=== PATIENT | female | born 2000 | race Caucasian/White ===

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

== ENCOUNTER 2021-06-20 17:35 | Emergency (ER) | payer MEDICAID, SELFPAY ==
[2021-06-20 17:38] VITALS: BP 142/111; PULSE 104; RESP 16; TEMP 37; O2SAT 98; BMI 39.4
[2021-06-20 18:40] LABS: Microscopic, Urine URINE MICROSCOPIC (MICROSCOPIC)
[2021-06-20 18:45] LABS: Basophils # 0.1 K/mm3 (0-0.2); Basophils % 0.8 % (0.1-2.0); Eosinophils # 0.1 K/mm3 (0.0-0.4); Eosinophils % 1.3 % (0.1-12.0); Hematocrit 45.4 % (37.0-47.0); Hemoglobin 14.6 g/dL (12.2-16.2); Lymphocytes # 1.9 K/mm3 (0.7-4.5); Lymphocytes % 17.7 % (10-50); Mean Corpuscular HGB Conc 32.2 g/dL (31.8-35.4); Mean Corpuscular Hemoglobin 26.2 pg (27.0-31.2); Mean Corpuscular Volume 81.4 fl (81-99); Mean Platelet Volume 9.7 fl (7.4-10.4); Monocytes # 0.3 K/mm3 (0.1-1.0); Monocytes % 3.1 % (1.7-9.3); Neutrophils # 8.1 K/mm3 (1.8-7.8); Platelet Count 272 K/mm3 (142-424); Red Blood Count 5.57 M/mm3 (4.20-5.40); White Blood Count 10.5 K/mm3 (4.8-10.8)
[2021-06-20 18:49] LABS: Appearance,Urine SL CLOUDY (Clear); Bilirubin,Urine Negative (Negative); Blood, Urine Negative (Negative); Color,Urine DK YELLOW (Yellow); Glucose,Urine (UA) Negative (Negative); Ketones,Urine TRACE (Negative); Leukocyte Esterase,Urine 1+ (Negative); Nitrate,Urine POSITIVE (Negative); Protein,Urine Negative (Negative); Urobilinogen,Urine 0.2 EU/dl (0.2)
[2021-06-20 18:51] LABS: Chloride 106 mmol/L (98-107)
[2021-06-20 18:52] LABS: Potassium 4.1 mmoL/L (3.5-5.1); Sodium 141 mmol/L (136-145)
[2021-06-20 18:54] LABS: Alanine Aminotransferase 24 U/L (12-78); Aspartate Amino Transferase 33 U/L (14-36); Bilirubin,Total 0.5 mg/dl (0.2-1.3); Blood Urea Nitrogen 8 mg/dl (7-17); Creatinine Clearance Estimated 237 mL/min (50-200); Estimated Glomerular Filt Rate 126 ml/min (>60); GFR (African American) 153 ML/MIN (>60)
[2021-06-20 18:55] LABS: Albumin Level 4.8 g/dl (3.5-5.0); Alkaline Phosphatase 141 U/L (38-126); Anion Gap 17.1 mEq/L (5-15); Calcium 9.7 mg/dl (8.4-10.2); Carbon Dioxide 22 mmol/L (22.0-30.0); Globulin 4.8 g/dL (1.3-3.2); Glucose 90 mg/dl (74-100); Lipase 68 U/L (23-300); Total Protein,Serum 9.6 g/dl (6.3-8.2)
[2021-06-20 18:57] LABS: Urine Pregnancy, HCG Qual. Negative (Negative)
[2021-06-20 18:59] LABS: Bacteria,Urine 3+ /lpf; RBC,Urine Occasional #/hpf (0-3)
--- NOTE | 2021-06-20 19:00 | CT_ITS ---
PROCEDURE INFORMATION: Exam: CT Abdomen And Pelvis With Contrast Exam date and time: 06/20/2021 7:00 PM Age: 21 years old Clinical indication: Abdominal pain; Localized; Right lower quadrant (rlq); Additional info: Rlq pain TECHNIQUE: Imaging protocol: Computed tomography of the abdomen and pelvis with contrast. Radiation optimization: All CT scans at this facility use at least one of these dose optimization techniques: automated exposure control; mA and/or kV adjustment per patient size (includes targeted exams where dose is matched to clinical indication); or iterative reconstruction. Contrast material: ISOVUE; Contrast volume: 75 ml; Contrast route: IV; COMPARISON: CR KUB XR KUB 06/09/2018 1:20 PM FINDINGS: Liver: Normal. No mass. Gallbladder and bile ducts: Normal. No calcified stones. No ductal dilation. Pancreas: Normal. No ductal dilation. Spleen: Normal. No splenomegaly. Adrenal glands: Normal. No mass. Kidneys and ureters: Normal. No hydronephrosis. Stomach and bowel: Unremarkable. No obstruction. No mucosal thickening. Appendix: No evidence of appendicitis. Intraperitoneal space: Unremarkable. No free air. No significant fluid collection. Vasculature: Unremarkable. No abdominal aortic aneurysm. Lymph nodes: Unremarkable. No enlarged lymph nodes. Urinary bladder: Unremarkable as visualized. Reproductive: Unremarkable as visualized. Bones/joints: Unremarkable. No acute fracture. Soft tissues: Unremarkable. IMPRESSION: No acute findings.
--- NOTE | 2021-06-20 19:42 | HMH.EDGENADL ---
ED Disposition Condition on Discharge: Fair Time of Disposition: 19:56 - Critical Care Critical Care Time: No <Rhonda Dickens - Last Filed: 06/20/21 20:02> <Jose A Galvan - Last Filed: 06/20/21 20:56> Clinical Impression: Urinary tract infection Qualifiers: Urinary tract infection type: acute cystitis Hematuria presence: without hematuria Qualified Code(s): N30.00 - Acute cystitis without hematuria Disposition: Home, Self-Care Instructions: DI for Urinary Tract Infection (UTI), DI for Acute Abdominal Pain Prescriptions: ondansetron HCL [Ondansetron 4mg tab*] 4 mg PO Q6 PRN #12 tab PRN Reason: Vomiting Transmission Status: Received by [facility] Sulfamethoxazole/Trimethoprim [Sulfamethoxazole-Tmp Ds Tablet*] 1 tab PO BID #14 tab Transmission Status: Received by [facility] Referrals: Alpesh Jc MD [Primary Care Provider] - Attestation: On 06/20/21, the high probability of a clinically significant, sudden or life threatening deterioration of the following system(s) required my full and direct attention, intervention and personal management. The time I documented below is in addition to time spent performing reported procedures but includes the following listed in this critical care notation. Medical Decision Making - Medical Records Medical records reviewed: Yes: I reviewed the patient's medical records. - Alek Inquiry Pt receiving controlled substance: No - Lab Data Result diagrams: 06/20/21 18:30 06/20/21 18:30 <Rhonda Dickens - Last Filed: 06/20/21 20:02> - Lab Data Lab results reviewed: Yes: I reviewed the patient's lab results. Result diagrams: 06/20/21 18:30 06/20/21 18:30 - CT Data CT Scan: Abdomen, Pelvis Time Received: 20:[address] Reviewed: Yes: I have viewed the radiologist's interpretation Preliminary Findings: Normal/NAD <Jose A Galvan - Last Filed: 06/20/21 20:56> Vital Signs: 06/20/21 17:38 Temperature 98.6 F Temperature Source Oral Pulse Rate [Radial] 104 H Respiratory Rate 16 Blood Pressure [Right Arm] 142/111 H Blood Pressure Mean [Right Arm] 121 Blood Pressure Position [Right Arm] Sitting 02 Sat by Pulse Oximetry 98 Oxygen Delivery Method Room Air - Lab Data Lab Results 06/20/21 18:30: Urine Color Dk yellow, Urine Appearance Sl cloudy, Urine pH 6.0, Ur Specific [place] 1.020, Urine Protein Negative, Urine Glucose (UA) Negative, Urine Ketones Trace, Urine Blood Negative, Urine Nitrate Positive, Urine Bilirubin Negative, Urine Urobilinogen 0.2, Ur Leukocyte Esterase 1+ A, Urine RBC Occasional, Urine WBC 5-10, Ur Squamous Epith Cells 3-5, Urine Bacteria 3+ 06/20/21 18:30: WBC 10.5, RBC 5.57 H, Hgb 14.6, Hct 45.4, MCV 81.4, MCH 26.2 L, MCHC 32.2, RDW 14.0, Plt Count 272, MPV 9.7, Neut % (Auto) 77.0, Lymph % (Auto) 17.7, [place] % (Auto) 3.1, Eos % (Auto) 1.3, Baso % (Auto) 0.8, Neut # (Auto) 8.1 H, Lymph # (Auto) 1.9, [place] # (Auto) 0.3, Eos # (Auto) 0.1, Baso # (Auto) 0.1 06/20/21 18:30: Urine HCG, Qual Negative 06/20/21 18:30: Sodium 141, Potassium 4.1, Chloride 106, Carbon Dioxide 22, Anion Gap 17.1 H, BUN 8, Creatinine 0.60, Estimated Creat Clear 237, Estimated GFR 126, Est GFR ( Amer) 153, Glucose 90, Calcium 9.7, Total Bilirubin 0.5, AST 33, ALT 24, Alkaline Phosphatase 141 H, Total Protein 9.6 H, Albumin 4.8, Globulin 4.8 H, Albumin/Globulin Ratio 1.0 L 06/20/21 18:30: Lipase 68 Orders (Tests/Meds): ED MEDICATIONS Generic Name Dose Route Start Last Admin Trade Name Freq PRN Reason Stop Dose Admin Ceftriaxone Sodium 1 gm/ 50 mls @ 100 mls/hr 06/20/21 20:00 06/20/21 19:52 Sodium Chloride IV 07/04/21 19:59 100 mls/hr Q24H OMAR Administration Discontinued Medications Generic Name Dose Route Start Last Admin Trade Name Freq PRN Reason Stop Dose Admin Iopamidol 75 ml 06/20/21 20:04 06/20/21 20:04 Iopamidol-370 (76%);100ml Bottle IV 06/20/21 20:05 75 ml ONCE ONE Administration Sodium Chloride
[2021-06-20 21:00] VITALS: BP 139/89; PULSE 90; RESP 16; TEMP 37; O2SAT 98
== END 2021-06-20 21:02 | disposition home or self-care (01) ==
PROVIDERS: Emergency Provider Emergency Medicine; PCP Family Medicine
DX: N30.00 Acute cystitis without hematuria (principal)
CPT/HCPCS: 74177; 80053; 81001; 81025; 83690; 85025; 87086; 87088; 87186; 96365; 99283; Q9967

== ENCOUNTER 2022-01-05 14:55 | Emergency (ER) | payer MEDICAID, SELFPAY ==
[2022-01-05 14:56] VITALS: BP 124/89; PULSE 92; RESP 16; TEMP 36.8; O2SAT 98; BMI 34.9
[2022-01-05 15:36] LABS: Microscopic, Urine URINE MICROSCOPIC (MICROSCOPIC)
[2022-01-05 15:38] LABS: Basophils # 0.2 K/mm3 (0-0.2); Basophils % 3.2 % (0.1-2.0); Eosinophils # 0.6 K/mm3 (0.0-0.4); Eosinophils % 9.5 % (0.1-12.0); Hematocrit 41.8 % (37.0-47.0); Hemoglobin 13.9 g/dL (12.2-16.2); Lymphocytes # 2.4 K/mm3 (0.7-4.5); Lymphocytes % 39.3 % (10-50); Mean Corpuscular HGB Conc 33.1 g/dL (31.8-35.4); Mean Corpuscular Hemoglobin 26.1 pg (27.0-31.2); Mean Corpuscular Volume 78.9 fl (81-99); Mean Platelet Volume 9.5 fl (7.4-10.4); Monocytes # 0.4 K/mm3 (0.1-1.0); Monocytes % 6.5 % (1.7-9.3); Neutrophils # 2.6 K/mm3 (1.8-7.8); Neutrophils % 41.4 % (37.0-80.0); Platelet Count 208 K/mm3 (142-424); Red Cell Distribution Width 14.8 % (11.5-17.5); White Blood Count 6.2 K/mm3 (4.8-10.8)
[2022-01-05 15:39] LABS: Appearance,Urine CLEAR (Clear); Bilirubin,Urine Negative (Negative); Blood, Urine Negative (Negative); Color,Urine YELLOW (Yellow); Glucose,Urine (UA) Negative (Negative); Ketones,Urine Negative (Negative); Leukocyte Esterase,Urine Negative (Negative); Nitrate,Urine Negative (Negative); Protein,Urine Negative (Negative); Urobilinogen,Urine 0.2 EU/dl (0.2)
[2022-01-05 15:42] LABS: Chloride 106 mmol/L (98-107)
[2022-01-05 15:43] LABS: Sodium 138 mmol/L (136-145)
[2022-01-05 15:45] LABS: Alanine Aminotransferase 49 U/L (12-78); Aspartate Amino Transferase 45 U/L (14-36); Bilirubin,Total 0.5 mg/dl (0.2-1.3); Blood Urea Nitrogen 7 mg/dl (7-17); Creatinine Clearance Estimated 179 mL/min (50-200); Estimated Glomerular Filt Rate 106 ml/min (>60); GFR (African American) 128 ML/MIN (>60); Lipase 85 U/L (23-300)
[2022-01-05 15:46] LABS: Albumin Level 4.2 g/dl (3.5-5.0); Albumin/Globulin Ratio 1.1 (1.1-1.8); Alkaline Phosphatase 145 U/L (38-126); Calcium 8.6 mg/dl (8.4-10.2); Carbon Dioxide 24 mmol/L (22.0-30.0); Globulin 3.7 g/dL (1.3-3.2); Glucose 88 mg/dl (74-100); Total Protein,Serum 7.9 g/dl (6.3-8.2)
[2022-01-05 15:51] LABS: Bacteria,Urine Trace /lpf; Mucus,Urine Trace /lpf; WBC,Urine Occasional #/hpf (0-3)
[2022-01-05 15:58] LABS: HCG Qualitative, Serum Negative (Negative)
--- NOTE | 2022-01-05 16:39 | HMH.EDABDPAI ---
ED Disposition Clinical Impression: Gastroenteritis Disposition: Home, Self-Care Condition on Discharge: Good Instructions: DI for Viral Gastroenteritis -- Adult Prescriptions: Ondansetron [Zofran 4mg ODT] 4 mg PO BIDP PRN #10 tab PRN Reason: Nausea Transmission Status: Pending to [facility] Referrals: Provider,Referral, [Primary Care Provider] - - Critical Care Critical Care Time: No Attestation: On 01/05/22, the high probability of a clinically significant, sudden or life threatening deterioration of the following system(s) required my full and direct attention, intervention and personal management. The time I documented below is in addition to time spent performing reported procedures but includes the following listed in this critical care notation. Medical Decision Making - Medical Records Medical records reviewed: Yes: I reviewed the patient's medical records. - Alek Inquiry Pt receiving controlled substance: No Vital Signs: 01/05/22 14:56 Temperature 98.3 F Temperature Source Oral Pulse Rate [Radial] 92 H Respiratory Rate 16 Blood Pressure [Right Arm] 124/89 Blood Pressure Mean [Right Arm] 100 Blood Pressure Position [Right Arm] Sitting 02 Sat by Pulse Oximetry 98 Oxygen Delivery Method Room Air - Lab Data Lab Results 01/05/22 15:20: Urine Color Yellow, Urine Appearance Clear, Urine pH 7.0, Ur Specific [place] 1.010, Urine Protein Negative, Urine Glucose (UA) Negative, Urine Ketones Negative, Urine Blood Negative, Urine Nitrate Negative, Urine Bilirubin Negative, Urine Urobilinogen 0.2, Ur Leukocyte Esterase Negative, Urine WBC Occasional, Ur Squamous Epith Cells 3-5, Urine Bacteria Trace, Urine Mucus Trace 01/05/22 15:20: WBC 6.2, RBC 5.30, Hgb 13.9, Hct 41.8, MCV 78.9 L, MCH 26.1 L, MCHC 33.1, RDW 14.8, Plt Count 208, MPV 9.5, Neut % (Auto) 41.4, Lymph % (Auto) 39.3, [place] % (Auto) 6.5, Eos % (Auto) 9.5, Baso % (Auto) 3.2 H, Neut # (Auto) 2.6, Lymph # (Auto) 2.4, [place] # (Auto) 0.4, Eos # (Auto) 0.6 H, Baso # (Auto) 0.2 01/05/22 15:20: Sodium 138, Potassium 4.0, Chloride 106, Carbon Dioxide 24, Anion Gap 12.0, BUN 7, Creatinine 0.70, Estimated Creat Clear 179, Estimated GFR 106, Est GFR ( Amer) 128, Glucose 88, Calcium 8.6, Total Bilirubin 0.5, AST 45 H, ALT 49, Alkaline Phosphatase 145 H, Total Protein 7.9, Albumin 4.2, Globulin 3.7 H, Albumin/Globulin Ratio 1.1 01/05/22 15:20: Serum HCG, Qual Negative 01/05/22 15:20: Lipase 85 Result diagrams: 01/05/22 15:20 01/05/22 15:20 Orders (Tests/Meds): ED MEDICATIONS Discontinued Medications Generic Name Dose Route Start Last Admin Trade Name Freq PRN Reason Stop Dose Admin Lactated Ringer's 1,000 mls @ 999 mls/hr 01/05/22 15:30 01/05/22 15:27 Lactated Ringer's 1000 Ml Bag IV 01/05/22 16:30 999 mls/hr .Q1H1M OMAR Administration - Reevaluation(s) Time: 16:42 Reevaluation #1: On reevaluation, the patient is feeling much better. Repeat abdominal examination does not show any evidence of acute abdomen. She is tolerating oral intake. Patient be discharged with short course of antiemetics. Needs follow-up with PCP in 48 hours for repeat abdominal examination. If she is to have any change in symptoms she is to return to the emergency department immediately. Verbalized understanding. Medical Decision Narrative: 21-year-old female presenting with some cramping and diarrhea. Patient symptoms appear to be consistent with gastroenteritis. Abdominal examination is benign. Work-up initiated. Abdominal Pain HPI - General Chief Complaint: Abdominal Pain Stated Complaint: abd pains, diarrhea Time Seen by Provider: 01/05/22 15:00 Mode of Arrival: Ambulatory Limitations: No Limitations Description of Symptoms (Recalled from ER Triage Doc. by RN): TO ED PER PVT CAR WITH C/O MID LOWER ABD PAIN INTERMITTENTLY STARTING TU. C/O NAUSEA AND DIARRHEA X 1 YESTERDAY. PT DENIES ANY SICK CONTACTS. DENIES F
[2022-01-05 16:52] VITALS: BP 120/70; PULSE 70; RESP 16; TEMP 36.9; O2SAT 98
== END 2022-01-05 16:53 | disposition home or self-care (01) ==
PROVIDERS: Emergency Provider Emergency Medicine
DX: K52.9 Noninfective gastroenteritis and colitis, unspecified (principal)
CPT/HCPCS: 80053; 81001; 83690; 84703; 85025; 96360; 96365; 99284

== ENCOUNTER 2022-04-15 10:06 | Emergency (ER) | payer MEDICAID, SELFPAY ==
[2022-04-15 10:07] VITALS: BP 141/100; PULSE 118; RESP 20; TEMP 36.7; O2SAT 100; BMI 35.4
--- NOTE | 2022-04-15 10:15 | CT_ITS ---
PROCEDURE INFORMATION: Exam: CT Abdomen And Pelvis With Contrast Exam date and time: 04/15/2022 10:54 AM Age: 22 years old Clinical indication: Abdominal pain; Acute; Additional info: Ruq pain TECHNIQUE: Imaging protocol: Computed tomography of the abdomen and pelvis with contrast. Radiation optimization: All CT scans at this facility use at least one of these dose optimization techniques: automated exposure control; mA and/or kV adjustment per patient size (includes targeted exams where dose is matched to clinical indication); or iterative reconstruction. Contrast material: ISOVUE; Contrast volume: 75 ml; Contrast route: IV; COMPARISON: CT ABDOMEN PELVIS W CON 06/20/2021 7:53 PM FINDINGS: Liver: Normal. No mass. Gallbladder and bile ducts: Normal. No calcified stones. No ductal dilation. Pancreas: Normal. No ductal dilation. Spleen: Normal. No splenomegaly. Adrenal glands: Normal. No mass. Kidneys and ureters: Normal. No hydronephrosis. Stomach and bowel: Unremarkable. No obstruction. No mucosal thickening. Appendix: No evidence of appendicitis. Intraperitoneal space: Unremarkable. No free air. No significant fluid collection. Vasculature: Unremarkable. No abdominal aortic aneurysm. Lymph nodes: Unremarkable. No enlarged lymph nodes. Urinary bladder: Unremarkable as visualized. Reproductive: Unremarkable as visualized. Bones/joints: Unremarkable. No acute fracture. Soft tissues: Unremarkable. IMPRESSION: No acute findings.
--- NOTE | 2022-04-15 10:31 | PC.NURSE ---
pt up to the bathroom without any difficulty
[2022-04-15 10:36] LABS: Basophils # 0.1 K/mm3 (0-0.2); Eosinophils # 0.6 K/mm3 (0.0-0.4); Eosinophils % 6.6 % (0.1-12.0); Hematocrit 41.9 % (37.0-47.0); Hemoglobin 14.3 g/dL (12.2-16.2); Lymphocytes # 1.5 K/mm3 (0.7-4.5); Lymphocytes % 17.7 % (10-50); Mean Corpuscular Hemoglobin 26.6 pg (27.0-31.2); Mean Corpuscular Volume 78.2 fl (81-99); Mean Platelet Volume 8.9 fl (7.4-10.4); Monocytes # 0.5 K/mm3 (0.1-1.0); Monocytes % 6.4 % (1.7-9.3); Neutrophils # 5.6 K/mm3 (1.8-7.8); Neutrophils % 68.2 % (37.0-80.0); Platelet Count 209 K/mm3 (142-424); Red Blood Count 5.36 M/mm3 (4.20-5.40); Red Cell Distribution Width 13.2 % (11.5-17.5); White Blood Count 8.3 K/mm3 (4.8-10.8)
[2022-04-15 10:37] LABS: Alanine Aminotransferase 24 U/L (12-78); Albumin Level 4.3 g/dl (3.5-5.0); Albumin/Globulin Ratio 1.1 (1.1-1.8); Alkaline Phosphatase 148 U/L (38-126); Anion Gap 11.8 mEq/L (5-15); Aspartate Amino Transferase 30 U/L (14-36); Bilirubin,Total 0.3 mg/dl (0.2-1.3); Blood Urea Nitrogen 13 mg/dl (7-17); Calcium 9.5 mg/dl (8.4-10.2); Carbon Dioxide 23 mmol/L (22.0-30.0); Chloride 106 mmol/L (98-107); Creatinine Clearance Estimated 181 mL/min (50-200); Estimated Glomerular Filt Rate 105 ml/min (>60); GFR (African American) 127 ML/MIN (>60); Globulin 3.8 g/dL (1.3-3.2); Glucose 110 mg/dl (74-100); Lipase 52 U/L (23-300); Potassium 3.8 mmoL/L (3.5-5.1); Sodium 137 mmol/L (136-145); Total Protein,Serum 8.1 g/dl (6.3-8.2)
[2022-04-15 10:38] VITALS: BP 136/106; PULSE 95; RESP 12; O2SAT 99
--- NOTE | 2022-04-15 10:42 | HMH.EDGENADL ---
ED Disposition Clinical Impression: Abdominal cramps, Epigastric abdominal pain Disposition: Home, Self-Care Condition on Discharge: Good Instructions: DI for Acute Abdominal Pain, DI for Epigastric Pain Prescriptions: Dicyclomine HCl 20 mg PO Q6 PRN #20 tab PRN Reason: Cramping Transmission Status: Pending to [facility] Omeprazole [Omeprazole 20mg Tab] 20 mg PO DAILY #30 tab Transmission Status: [email or web address] Referrals: Alicia Deluna PA [Primary Care Provider] - Time of Disposition: 12:08 - Critical Care Critical Care Time: No Attestation: On 04/15/22, the high probability of a clinically significant, sudden or life threatening deterioration of the following system(s) required my full and direct attention, intervention and personal management. The time I documented below is in addition to time spent performing reported procedures but includes the following listed in this critical care notation. Medical Decision Making - Medical Records Medical records reviewed: Yes: I reviewed the patient's medical records. - Alek Inquiry Pt receiving controlled substance: No Vital Signs: 04/15/22 10:07 04/15/22 10:38 04/15/22 11:29 Temperature 98.0 F Temperature Source Oral Pulse Rate 95 H 91 H Pulse Rate [Left Radial] 118 H Respiratory Rate 20 12 16 Blood Pressure 136/106 H 131/80 Blood Pressure [Right Arm] 141/100 H Blood Pressure Mean [Right Arm] 113 Blood Pressure Source [Right Arm] Automatic Cuff Blood Pressure Position [Right Arm] Sitting 02 Sat by Pulse Oximetry 100 99 98 Oxygen Delivery Method Room Air 04/15/22 12:03 Temperature Temperature Source Pulse Rate 92 H Pulse Rate [Left Radial] Respiratory Rate 14 Blood Pressure 124/87 Blood Pressure [Right Arm] Blood Pressure Mean [Right Arm] Blood Pressure Source [Right Arm] Blood Pressure Position [Right Arm] 02 Sat by Pulse Oximetry 100 Oxygen Delivery Method - Lab Data Lab Results 04/15/22 10:20: WBC 8.3, RBC 5.36, Hgb 14.3, Hct 41.9, MCV 78.2 L, MCH 26.6 L, MCHC 34.0, RDW 13.2, Plt Count 209, MPV 8.9, Neut % (Auto) 68.2, Lymph % (Auto) 17.7, [place] % (Auto) 6.4, Eos % (Auto) 6.6, Baso % (Auto) 1.0, Neut # (Auto) 5.6, Lymph # (Auto) 1.5, [place] # (Auto) 0.5, Eos # (Auto) 0.6 H, Baso # (Auto) 0.1 04/15/22 10:20: Sodium 137, Potassium 3.8, Chloride 106, Carbon Dioxide 23, Anion Gap 11.8, BUN 13, Creatinine 0.70, Estimated Creat Clear 181, Estimated GFR 105, Est GFR ( Amer) 127, Glucose 110 H, Calcium 9.5, Total Bilirubin 0.3, AST 30, ALT 24, Alkaline Phosphatase 148 H, Total Protein 8.1, Albumin 4.3, Globulin 3.8 H, Albumin/Globulin Ratio 1.1, Lipase 52 04/15/22 10:40: Urine Color Yellow, Urine Appearance Sl cloudy, Urine pH 6.0, Ur Specific [place] >= 1.030, Urine Protein Negative, Urine Glucose (UA) Negative, Urine Ketones Negative, Urine Blood Negative, Urine Nitrate Negative, Urine Bilirubin Negative, Urine Urobilinogen 0.2, Ur Leukocyte Esterase Negative, Urine WBC 5-10, Ur Squamous Epith Cells 5-10, Amorphous Sediment Trace, Urine Bacteria 2+, Urine Mucus 2+ 04/15/22 10:40: Urine HCG, Qual Negative Result diagrams: 04/15/22 10:20 04/15/22 10:20 Orders (Tests/Meds): ED MEDICATIONS Discontinued Medications Generic Name Dose Route Start Last Admin Trade Name Loboq PRN Reason Stop Dose Admin Dicyclomine HCl 20 mg 04/15/22 11:50 04/15/22 12:01 Dicyclomine 10mg Capsule PO 04/15/22 11:51 20 mg ONCE ONE Administration Iopamidol 75 ml 04/15/22 11:06 04/15/22 11:07 Iopamidol-370 (76%);100ml Bottle IV 04/15/22 11:07 75 ml ONCE ONE Administration Ketorolac Tromethamine 15 mg 04/15/22 10:16 04/15/22 10:23 Ketorolac 30mg/Ml Vial IV 04/15/22 10:17 15 mg ONCE ONE Administration Sodium Chloride 10 ml 04/15/22 11:06 04/15/22 11:06 Sodium Chloride 0.9% 10ml Syr (Rad Only) IV 04/15/22 11:07 10 ml ONCE ONE Administration ORDERS Categ
[2022-04-15 10:46] LABS: Microscopic, Urine URINE MICROSCOPIC (MICROSCOPIC)
[2022-04-15 10:48] LABS: Appearance,Urine SL CLOUDY (Clear); Bilirubin,Urine Negative (Negative); Blood, Urine Negative (Negative); Color,Urine YELLOW (Yellow); Glucose,Urine (UA) Negative (Negative); Ketones,Urine Negative (Negative); Leukocyte Esterase,Urine Negative (Negative); Nitrate,Urine Negative (Negative); Protein,Urine Negative (Negative); Specific Gravity, Urine >= 1.030 (1.005-1.030); Urobilinogen,Urine 0.2 EU/dl (0.2)
[2022-04-15 10:49] LABS: Urine Pregnancy, HCG Qual. Negative (Negative)
--- NOTE | 2022-04-15 10:58 | PC.NURSE ---
pt to ct
[2022-04-15 11:00] LABS: Amorphous Sediment,Urine Trace /lpf; Bacteria,Urine 2+ /lpf; Mucus,Urine 2+ /lpf
--- NOTE | 2022-04-15 11:15 | PC.NURSE ---
pt back from ct
--- NOTE | 2022-04-15 11:20 | PC.NURSE ---
rounded on pt. no needs at this time
[2022-04-15 11:29] VITALS: BP 131/80; PULSE 91; RESP 16; O2SAT 98
[2022-04-15 12:03] VITALS: BP 124/87; PULSE 92; RESP 14; O2SAT 100
[2022-04-15 12:40] VITALS: BP 119/88; PULSE 79; RESP 17; TEMP 36.7; O2SAT 99
== END 2022-04-15 12:40 | disposition home or self-care (01) ==
PROVIDERS: Emergency Provider Emergency Medicine; PCP Physician Assistant
DX: R10.9 Unspecified abdominal pain (principal); R10.13 Epigastric pain
CPT/HCPCS: 74177; 80053; 81001; 81025; 83690; 85025; 87086; 96374; 99284; Q9967

== ENCOUNTER 2023-04-10 14:36 | Emergency (ER) | payer MEDICAID, SELFPAY ==
[2023-04-10 15:00] VITALS: BP 138/88; PULSE 110; O2SAT 98
[2023-04-10 15:13] VITALS: BP 156/87; PULSE 101; RESP 19; TEMP 36.8; O2SAT 98; BMI 39.6
[2023-04-10 15:30] VITALS: BP 150/87; PULSE 102; O2SAT 100
[2023-04-10 15:33] LABS: Basophils % 0.5 % (0.1-2.0); Eosinophils # 0.5 K/mm3 (0.0-0.4); Eosinophils % 5.2 % (0.1-12.0); Hematocrit 39.5 % (37.0-47.0); Hemoglobin 12.4 g/dL (12.2-16.2); Lymphocytes # 3.1 K/mm3 (0.7-4.5); Lymphocytes % 34.5 % (10-50); Mean Corpuscular HGB Conc 31.5 g/dL (31.8-35.4); Mean Corpuscular Hemoglobin 25.1 pg (27.0-31.2); Mean Corpuscular Volume 79.7 fl (81-99); Monocytes # 0.4 K/mm3 (0.1-1.0); Monocytes % 4.6 % (1.7-9.3); Neutrophils # 4.9 K/mm3 (1.8-7.8); Neutrophils % 55.2 % (37.0-80.0); Platelet Count 199 K/mm3 (142-424); Red Blood Count 4.96 M/mm3 (4.20-5.40); Red Cell Distribution Width 13.7 % (11.5-17.5); White Blood Count 8.9 K/mm3 (4.8-10.8)
[2023-04-10 15:39] LABS: Alanine Aminotransferase 29 U/L (12-78); Albumin Level 4.2 g/dl (3.5-5.0); Albumin/Globulin Ratio 1.2 (1.1-1.8); Alkaline Phosphatase 152 U/L (38-126); Anion Gap 9.6 mEq/L (5-15); Aspartate Amino Transferase 27 U/L (14-36); Bilirubin,Total 0.2 mg/dl (0.2-1.3); Blood Urea Nitrogen 9 mg/dl (7-17); Calcium 9.1 mg/dl (8.4-10.2); Carbon Dioxide 27 mmol/L (22.0-30.0); Chloride 107 mmol/L (98-107); Creatinine Clearance Estimated 234 mL/min (50-200); Estimated Glomerular Filt Rate 124 ml/min (>60); GFR (African American) 150 ML/MIN (>60); Globulin 3.6 g/dL (1.3-3.2); Glucose 145 mg/dl (74-100); Lactic Acid 1.8 mmol/L (0.7-2.1); Potassium 3.6 mmoL/L (3.5-5.1); Sodium 140 mmol/L (136-145); Total Protein,Serum 7.8 g/dl (6.3-8.2)
[2023-04-10 15:44] LABS: HCG Qualitative, Serum Negative (Negative)
--- NOTE | 2023-04-10 15:51 | PC.NURSE ---
pt undressed from the waist down for exam
[2023-04-10 16:01] VITALS: BP 125/82; PULSE 101; O2SAT 99
--- NOTE | 2023-04-10 16:20 | PC.NURSE ---
ASSISTED PT. TO DESIREE
--- NOTE | 2023-04-10 16:21 | HMH.EDGENADL ---
Discharge Plan Disposition Patient Disposition: Home, Self-Care Condition: Good Prescriptions Prescriptions: New hydrocortisone acetate [Anucort-HC] 25 mg suppository 25 mg NM HS PRN (Reason: itching) Qty: 12 0RF No Action medroxyprogesterone [Depo-Provera] 150 mg/mL suspension 150 mg IM [id number] Qty: 1 3RF Linzess 72 mcg capsule 72 mcg PO DAILY Referrals Follow up/Referrals: Maria T Deluna APRN [Primary Care Provider] - See instructions Activity Restrictions/Add. Instructions Additional Instructions/Restrictions: You were evaluated in the emergency department today. Please molded goods spot picker your prescription for suppositories and use as needed. Continue taking your Linzess at home. Follow-up with your primary care provider. Return to the emergency department for any new or worsening symptoms Clinical Impressions Clinical Impression: BRBPR (bright red blood per rectum) Hemorrhoid Qualifiers: Hemorrhoid type: unspecified Qualified Code(s): K64.9 - Unspecified hemorrhoids Instructions Patient Instructions: DI for Rectal Bleeding, DI for Hemorrhoids Discharge ED Provider: Jaclyn Dunn General Adult HPI General Chief complaint: GI Bleed Stated complaint: Anal bleeding Time Seen by Provider: 04/10/23 15:21 Mode of Arrival: Ambulatory Source of Information: Patient Limitations: No Limitations Description of Symptoms (Recalled from ER Triage Doc. by RN): 23 yo F presents to ED with c/o rectal bleeding. pt does have hx of IBS. pt reports that this am she began to have lower belly cramping, and small bleeding from bowels. History of Present Illness HPI narrative: This patient is a 23-year-old female with a history of IBS presented to the emergency department for evaluation with concern for bright red blood per rectum, mostly when she wipes. States that this started today. Nothing seems to improve or make it worse. She denies any fevers, chills, abdominal pain, rectal pain, nausea, vomiting, changes in bowel movements, or other concerns. Related Data Home Medications Medication Instructions Recorded Confirmed linaclotide 72 mcg capsule 72 mcg PO DAILY 01/14/23 01/14/23 (Linzess) Previous Rx's Medication Instructions Recorded medroxyprogesterone 150 mg/mL 150 mg IM [id number] #1 mL 10/17/22 intramuscular suspension (Depo-Provera) hydrocortisone acetate 25 mg 25 mg NM HS PRN itching #12 ea 04/10/23 rectal suppository (Anucort-HC) Allergies Allergy/AdvReac Type Severity Reaction Status Date / Time corn AdvReac Verified 01/14/23 13:16 [facility] Disclaimer: The information contained in this section may have been updated after the patient was seen, as this information can be updated by other users. Social History Smoking Status: Never smoker alcohol intake: current substance use type: denies use current occupational status: student Travel in the last 8 weeks: None ROS Obtained: Yes All systems reviewed & no additional complaints except as documented 14 point review of systems obtained and negative except as mentioned in HPI. Physical Exam General General appearance: alert and in no apparent distress Head Head exam: atraumatic and normocephalic Eye Eye exam: Present normal appearance, PERRL and EOMI ENT ENT exam: Present normal exam and normal oropharynx Neck Neck exam: Present normal inspection and full ROM Chest Chest inspection: Present normal inspection and symmetric chest wall rise Respiratory Respiratory exam: Present normal lung sounds bilaterally; Absent respiratory distress Cardiovascular Cardiovascular exam: Present regular rate and normal rhythm Abdominal Exam Abdominal exam: Present soft and normal bowel sounds; Absent distention, tenderness, guarding, rebound or rigidity Rectal Exam Rectal exam: Present normal rectal tone and hemorrhoids; Absent black stool or bloody stool comment: he
[2023-04-10 16:39] LABS: Adenovirus F 40/41, stool Not Detected (NotDetected); Astrovirus Not Detected (NotDetected); Campylobacter Not Detected (NotDetected); Clostridium Difficile A/B, PCR Not Detected (NotDetected); Cryptosporidium Not Detected (NotDetected); Cyclospora Cayetanesis Not Detected (NotDetected); Entamoeba histolytica Not Detected (NotDetected); Enteroaggregative E coli Not Detected (NotDetected); Enteropathogenic E coli Not Detected (NotDetected); Enterotoxigenic E coli Not Detected (NotDetected); Giardia lamblia Not Detected (NotDetected); Norovirus Not Detected (NotDetected); Plesimonas Shigalloides, PCR Not Detected (NotDetected); Rotavirus A Not Detected (NotDetected); Salmonella, PCR Not Detected (NotDetected); Sapovirus Not Detected (NotDetected); Shigella Enterovasive E coli Not Detected (NotDetected); Vibrio Cholerae Not Detected (NotDetected); Vibrio, PCR Not Detected (NotDetected); Yersinia Entercolitica, PCR Not Detected (NotDetected)
[2023-04-10 16:44] VITALS: BP 140/85; PULSE 102; RESP 20; TEMP 36.8; O2SAT 98
[2023-04-10 19:01] LABS: Shiga-like toxin E coli Detected (NotDetected)
--- NOTE | 2023-04-10 19:03 | PC.NURSE ---
Sha Quiñones reported positive spec to Dr. Jaclyn Dunn
== END 2023-04-10 16:48 | disposition home or self-care (01) ==
PROVIDERS: Emergency Provider Emergency Medicine; PCP Nurse Practitioner
DX: K64.9 Unspecified hemorrhoids (principal); K58.9 Irritable bowel syndrome, unspecified
CPT/HCPCS: 80053; 83605; 84703; 85025; 87507; 99285

== ENCOUNTER 2023-09-07 22:44 | Emergency (ER) | payer MEDICAID, SELFPAY ==
[2023-09-07 22:45] VITALS: BP 128/94; PULSE 150; RESP 24; TEMP 36.8; O2SAT 98; BMI 38.9
[2023-09-07 22:50] VITALS: BP 128/94; PULSE 139; RESP 24; O2SAT 98
--- NOTE | 2023-09-07 22:56 | ECG_ITS ---
APPROVED REPORT Exam: Resting ECG HR:148 bpm ECG Measurements Heart Rate 148 AXES IL 93 P 25 QRSd 80 QRS 71 QT 293 T 49 QTc 378 Conclusion SINUS TACHYCARDIA WITH SHORT IL INTERVAL, POSSIBLE ATRIAL FLUTTER NONSPECIFIC T-WAVE ABNORMALITY ABNORMAL RHYTHM ECG UNCONFIRMED REPORT Electronically signed by : Zach Cruz MD 09/08/2023 07:32:20
--- NOTE | 2023-09-07 22:57 | PC.NURSE ---
Patient appears anxious, coached patient on slow deep breaths and calming techniques. Patient responded well.
--- NOTE | 2023-09-07 23:11 | CT_ITS ---
PROCEDURE INFORMATION: Exam: CT Abdomen And Pelvis With Contrast Exam date and time: 09/07/2023 11:35 PM Age: 23 years old Clinical indication: Abdominal pain; Additional info: Periumbilical pain, tachy TECHNIQUE: Imaging protocol: Computed tomography of the abdomen and pelvis with contrast. Radiation optimization: All CT scans at this facility use at least one of these dose optimization techniques: automated exposure control; mA and/or kV adjustment per patient size (includes targeted exams where dose is matched to clinical indication); or iterative reconstruction. Contrast material: ISOVUE; Contrast volume: 75 ml; Contrast route: IV; REPORTING DATA: Count of CT and Cardiac NM exams in prior 12 months: This patient has received 0 known CTs and 0 known cardiac nuclear medicine studies in the 12 months prior to the current study. COMPARISON: CT ABDOMEN PELVIS W CON 04/15/2022 10:54 AM FINDINGS: Lungs: Lung bases are clear. Liver: Mild fatty liver changes. Liver otherwise unremarkable. Gallbladder and bile ducts: Normal. No calcified stones. No ductal dilation. Pancreas: Normal. No ductal dilation. Spleen: Normal. No splenomegaly. Adrenal glands: Normal. No mass. Kidneys and ureters: Normal. No hydronephrosis. Stomach and bowel: Fluid scattered throughout the colon. Colon otherwise unremarkable. Mildly to moderately distended stomach filled with fluid and food. Scattered fluid distended but nondilated small bowel loops throughout the abdomen and pelvis. Appendix: No evidence of appendicitis. Intraperitoneal space: Unremarkable. No free air. No significant fluid collection. Vasculature: Unremarkable. No abdominal aortic aneurysm. Lymph nodes: Unremarkable. No enlarged lymph nodes. Urinary bladder: Unremarkable as visualized. Reproductive: Unremarkable as visualized. Bones/joints: Unremarkable. No acute fracture. Soft tissues: Unremarkable. IMPRESSION: 1. Fluid distended small bowel loops that can be associated with gastroenteritis in the proper clinical setting. 2. Mildly to moderately distended stomach with food and fluid that may also be associated gastroenteritis. Gastroparesis or developing gastric outlet obstruction can not be entirely excluded in the proper clinical setting. 3. Fluid scattered throughout the colon suggesting diarrheal illness at can also be associated with gastroenteritis.
--- NOTE | 2023-09-07 23:14 | HMH.EDGENADL ---
Discharge Plan Disposition Patient Disposition: Home, Self-Care Prescriptions Prescriptions: No Action medroxyprogesterone [Depo-Provera] 150 mg/mL suspension 150 mg IM [id number] Qty: 1 3RF Linzess 72 mcg capsule 72 mcg PO DAILY [facility] Pinworm Medicine 50 mg/mL suspension 50 mg PO Patient Comments: Drink 20 mls of the liquid today and repeat in 2 weeks if needed. Referrals Follow up/Referrals: Alicia Deluna PA [Primary Care Provider] - See instructions Activity Restrictions/Add. Instructions Additional Instructions/Restrictions: Your workup showed that you have gastroenteritis. This may last for a few days. Please monitor hydration, I encourage you to drink lots of fluids and electrolytes. Your workup also showed some issues with your thyroid being too high. This needs to be followed up with your primary care provider. Please follow-up with your primary care provider. Please return to the emergency department if you develop any new or worsening symptoms or become concerned for your health. Clinical Impressions Clinical Impression: Gastroenteritis, Dehydration, Diarrhea, Elevated TSH, Elevated serum free T4 level Instructions Patient Instructions: DI for Acute Abdominal Pain Discharge ED Provider: Jaydon Medeiros General Adult HPI General Chief complaint: Abdominal Pain Stated complaint: stomach pain Time Seen by Provider: 09/07/23 23:00 Mode of Arrival: Ambulatory Source of Information: Patient Limitations: No Limitations Description of Symptoms (Recalled from ER Triage Doc. by RN): Patient reports diarrhea and umbilical abdominal pain starting approximately 9:30 this am. States she's had multiple episodes of yellow, watery stools, most recently just upon arrival. Patient describes abdominal pain as sharp and intermittent 7/10. Patient denies fevers at home, denies recent sick contacts. Patient reports nausea without emesis at this time. History of Present Illness HPI narrative: 23-year-old female, history of IBS-C, on Depo for control, history of panic disorder presents with tachycardia and abdominal pain. She reports that abdominal pain is periumbilical in nature. She reports moderate volume frequent diarrhea today. Reports diarrhea has turned yellow. Reports some nausea with abdominal pain, denies vomiting. Reports no history of abdominal surgery. Reports regular menses. Related Data Home Medications Medication Instructions Recorded Confirmed linaclotide 72 mcg capsule 72 mcg PO DAILY 01/14/23 07/25/23 (Linzess) pyrantel pamoate 50 mg/mL oral 50 mg PO 07/25/23 07/25/23 suspension ([facility] Pinworm [facility]) Previous Rx's Medication Instructions Recorded medroxyprogesterone 150 mg/mL 150 mg IM [id number] #1 mL 10/17/22 intramuscular suspension (Depo-Provera) Allergies Allergy/AdvReac Type Severity Reaction Status Date / Time corn AdvReac Verified 09/08/23 00:43 [facility] Disclaimer: The information contained in this section may have been updated after the patient was seen, as this information can be updated by other users. Medical History (Updated 09/08/23 @ 00:47 by Juan Zhu MD) IBS (irritable bowel syndrome) Family History (Updated 04/23/23 @ 13:44 by Carissa Brower CMA) Other Cancer Diabetes Heart attack Hypertension Substance abuse Social History Smoking Status: Never smoker alcohol intake: current substance use type: denies use current occupational status: student Travel in the last 8 weeks: None ROS Obtained: Yes All systems reviewed & no additional complaints except as documented Physical Exam General General appearance: alert and anxious Head Head exam: atraumatic and normocephalic Eye Eye exam: Present normal appearance, PERRL and EOMI ENT ENT exam: Present normal oropharynx and normal external ear exam Neck Neck exam: Pres
[2023-09-07 23:23] LABS: Basophils # 0.1 K/mm3 (0-0.2); Basophils % 0.5 % (0.1-2.0); Eosinophils # 0.5 K/mm3 (0.0-0.4); Hematocrit 48.2 % (37.0-47.0); Hemoglobin 16.3 g/dL (12.2-16.2); Lymphocytes # 2.2 K/mm3 (0.7-4.5); Lymphocytes % 12.3 % (10-50); Mean Corpuscular HGB Conc 33.8 g/dL (31.8-35.4); Mean Corpuscular Hemoglobin 26.8 pg (27.0-31.2); Mean Corpuscular Volume 79.5 fl (81-99); Mean Platelet Volume 10.4 fl (7.4-10.4); Monocytes # 0.6 K/mm3 (0.1-1.0); Monocytes % 3.7 % (1.7-9.3); Neutrophils % 80.5 % (37.0-80.0); Platelet Count 236 K/mm3 (142-424); Red Blood Count 6.06 M/mm3 (4.20-5.40); Red Cell Distribution Width 14.2 % (11.5-17.5); White Blood Count 17.4 K/mm3 (4.8-10.8)
[2023-09-07 23:24] LABS: Chloride 103 mmol/L (98-107); MANUAL DIFFERENTIAL MANUAL DIFFERENTIAL (MANUAL DIFF); Potassium 3.7 mmoL/L (3.5-5.1); Sodium 139 mmol/L (136-145)
[2023-09-07 23:27] LABS: Alanine Aminotransferase 35 U/L (12-78); Albumin Level 4.9 g/dl (3.5-5.0); Alkaline Phosphatase 194 U/L (38-126); Anion Gap 15.7 mEq/L (5-15); Aspartate Amino Transferase 39 U/L (14-36); Bilirubin,Total 0.7 mg/dl (0.2-1.3); Blood Urea Nitrogen 14 mg/dl (7-17); Calcium 9.5 mg/dl (8.4-10.2); Carbon Dioxide 24 mmol/L (22.0-30.0); Creatinine Clearance Estimated 197 mL/min (50-200); Estimated Glomerular Filt Rate 104 ml/min (>60); GFR (African American) 125 ML/MIN (>60); Globulin 4.7 g/dL (1.3-3.2); Glucose 145 mg/dl (74-100); Lipase 91 U/L (23-300); Total Protein,Serum 9.6 g/dl (6.3-8.2)
[2023-09-07 23:28] LABS: Acetone, Serum (Rapid) None Detected (None Detect); HCG Qualitative, Serum Negative (Negative); Lactic Acid 2.4 mmol/L (0.7-2.1)
[2023-09-07 23:30] VITALS: PULSE 135; O2SAT 98
[2023-09-07 23:45] LABS: T4 (Thyroxine) 17.3 ug/dl (5.53-11.0)
[2023-09-07 23:58] LABS: Thyroid Stimulating Hormone 4.81 uIU/mL (0.465-4.68)
[2023-09-08] VITALS: PULSE 121; O2SAT 99
[2023-09-08] LABS: Magnesium 2.1 mg/dl (1.6-2.3)
[2023-09-08 00:15] VITALS: PULSE 110; O2SAT 100
[2023-09-08 00:16] LABS: Eosinophils % 2 % (0-3); Lymphocytes % 22 % (10-50); Monocytes % 1 % (2-9); Neutrophils % 75 % (42-76); Platelet Estimate Normal; RBC Morphology Normal; Total Cells Counted 100
[2023-09-08 00:30] VITALS: PULSE 111; O2SAT 98
[2023-09-08 00:45] VITALS: PULSE 103
[2023-09-08 00:52] VITALS: BP 146/89; PULSE 103; RESP 17; TEMP 36.7; O2SAT 98
== END 2023-09-08 00:54 | disposition home or self-care (01) ==
PROVIDERS: Emergency Medicine; Emergency Provider Emergency Medicine; PCP Physician Assistant
DX: E86.0 Dehydration (principal); K52.9 Noninfective gastroenteritis and colitis, unspecified; R94.6 Abnormal results of thyroid function studies; R00.0 Tachycardia, unspecified
CPT/HCPCS: 74177; 80053; 82009; 83605; 83690; 83735; 84436; 84443; 84703; 85007; 85025; 93005; 96361; 96374; 96375; 99291; J2405; Q9967

== ENCOUNTER 2023-09-09 13:03 | Emergency (ER) | payer MEDICAID, SELFPAY ==
[2023-09-09 13:40] VITALS: BP 129/89; PULSE 106; RESP 18; TEMP 36.7; O2SAT 97; BMI 39.8
--- NOTE | 2023-09-09 14:03 | EXP.UTC ---
Discharge Plan Disposition Patient Disposition: Home, Self-Care Condition: Good Prescriptions Prescriptions: No Action medroxyprogesterone [Depo-Provera] 150 mg/mL suspension 150 mg IM [id number] Qty: 1 3RF Linzess 72 mcg capsule 72 mcg PO DAILY Referrals Follow up/Referrals: Alicia Deluna PA [Primary Care Provider] - See instructions Activity Restrictions/Add. Instructions Additional Instructions/Restrictions: Collect stool and bring back to out patient lab Follow up with your Family Doctor for further evaluation and testing Make sure to call your Family Doctor office and try to get in to see them as soon as possible Make sure to be drinking plenty of fluids to keep yourself hydrated Drink extra fluids with and between meals. If you have difficulty drinking, try very small amounts of water or suck on ice chips. ? Avoid fruit juices, as these do not replace minerals and can actually increase diarrhea. ? Children and adults can use sports drinks to replenish electrolytes. Younger children and infants should use products formulated for children, like oral rehydration solutions. ? Eat food in small amounts and let your stomach recover. ? Get lots of rest. You may feel tired or weak. ? No greasy or fried foods for the next 24-48 hours BRAT diet Bananas Rice Apples and [place] ? Make sure to drink plenty of liquids ? Return if needed ? Straight to ER if any life threatening symptoms ? You was given an outpatient order for diarrhea panel, please collect specimen and bring back to outpatient lab then call back to the [facility] or follow up with family doctor for results ? Follow up with family doctor in the next 48-72 hours if no improvement or any worsening of symptoms Clinical Impressions Clinical Impression: Diarrhea Qualifiers: Diarrhea type: unspecified type Qualified Code(s): R19.7 - Diarrhea, unspecified Instructions Patient Instructions: Diarrhea Discharge ED Provider: Latha Guerra [facility] General Stated complaint: diarrhea for 3 days Mode of Arrival: Ambulatory Source of Information: Patient Limitations: No Limitations Time Seen by Provider: 09/09/23 14:03 Description of Symptoms (Recalled from Triage Doc. by RN): diarrhea for 3 days, and sharp pain around umbilicus that are off and on. HEENT Symptoms (Recalled from RN notes): No Resp Symptoms (Recalled from RN notes): No Skin Symptoms (Recalled from RN notes): No MS Symptoms (Recalled from RN notes): No Functional Status (Recalled from RN notes): n/a History of Present Illness Provider Complaint: Patient states that she was seen in the ED on Saturday for the same complaint and it is better than it was States that she was told to follow up with her Family Doctor but they was unable to get her in today and she just wanted to see if there was anything else that she could do about her diarrhea States that she has a hx Related Data Home Medications Medication Instructions Recorded Confirmed linaclotide 72 mcg capsule 72 mcg PO DAILY 01/14/23 09/09/23 (Linzess) Previous Rx's Medication Instructions Recorded medroxyprogesterone 150 mg/mL 150 mg IM [id number] #1 mL 10/17/22 intramuscular suspension (Depo-Provera) Allergies Allergy/AdvReac Type Severity Reaction Status Date / Time corn AdvReac Verified 09/09/23 13:59 Worker's Comp Is this a Worker's Comp case?: No [facility] Disclaimer: The information contained in this section may have been updated after the patient was seen, as this information can be updated by other users. Medical History (Updated 09/09/23 @ 14:27 by Latha Guerra APRN) IBS (irritable bowel syndrome) Family History Other Cancer Diabetes Heart attack Hypertension Substance abuse Social History
[2023-09-09 14:47] VITALS: BP 129/89; PULSE 106; RESP 18; TEMP 36.7; O2SAT 97
[2023-09-09 17:04] LABS: Adenovirus F 40/41, stool Not Detected (NotDetected); Astrovirus Not Detected (NotDetected); Campylobacter Not Detected (NotDetected); Clostridium Difficile A/B, PCR Not Detected (NotDetected); Cryptosporidium Not Detected (NotDetected); Cyclospora Cayetanesis Not Detected (NotDetected); Entamoeba histolytica Not Detected (NotDetected); Enteroaggregative E coli Not Detected (NotDetected); Enteropathogenic E coli Not Detected (NotDetected); Enterotoxigenic E coli Not Detected (NotDetected); Giardia lamblia Not Detected (NotDetected); Plesimonas Shigalloides, PCR Not Detected (NotDetected); Rotavirus A Not Detected (NotDetected); Salmonella, PCR Not Detected (NotDetected); Shiga-like toxin E coli Not Detected (NotDetected); Shigella Enterovasive E coli Not Detected (NotDetected); Vibrio Cholerae Not Detected (NotDetected); Vibrio, PCR Not Detected (NotDetected); Yersinia Entercolitica, PCR Not Detected (NotDetected)
[2023-09-14 11:31] LABS: Norovirus Detected (NotDetected); Sapovirus Not Detected (NotDetected)
== END 2023-09-09 14:35 | disposition home or self-care (01) ==
PROVIDERS: Emergency Provider Nurse Practitioner; PCP Physician Assistant
DX: A08.11 Acute gastroenteropathy due to Norwalk agent (principal); R10.33 Periumbilical pain; R19.7 Diarrhea, unspecified
CPT/HCPCS: 87507; 99204; 99212; G0463

== ENCOUNTER 2024-05-05 09:10 | Outpatient (CLI) | payer MEDICAID, SELFPAY ==
--- NOTE | 2024-05-05 09:11 | XR_ITS ---
FINAL REPORT TECHNIQUE: Bone mineral density was calculated of the lumbar spine and hip. CLINICAL HISTORY: High Risk , Residential use with medication depo COMPARISON: None FINDINGS: Using L1-4, the bone mineral density of the spine is 1.038 g/cm2, corresponding to T-score of -0.1. Using the left hip, the bone mineral density of the femoral neck is 0.984 g/cm2, corresponding to a T-score of 0.3. NOTE: T-score: Standard deviation compared with peak bone mass of young adult mean. *Following the recommendations of the International Society of Bone densitometry, classification of hip BMD is based on the lower of two T-scores; total hip or femoral neck. IMPRESSION: Normal bone mineral density of the lumbar spine and left hip. Reviewed, Interpreted and Dictated by Dominick Cano III, MD Transcribed by Anisha Mckeon Authenticated and . [facility]
== END 2024-05-05 23:59 | disposition home or self-care (01) ==
LOC: RAD 09:11
PROVIDERS: PCP Nurse Practitioner; Visit Provider Nurse Practitioner Obstetrics & Gynecology
DX: Z79.3 Long term (current) use of hormonal contraceptives (principal); Z79.899 Other long term (current) drug therapy
CPT/HCPCS: 77080

== ENCOUNTER 2024-09-20 20:53 | Emergency (ER) | payer MEDICAID, SELFPAY ==
[2024-09-20 20:54] VITALS: BP 143/94; PULSE 128; RESP 18; TEMP 36.4; O2SAT 97; BMI 38.9
[2024-09-20 21:06] VITALS: BP 124/84; PULSE 101; RESP 20; O2SAT 99
--- NOTE | 2024-09-20 21:42 | ED_ITS ---
Discharge Plan Disposition Patient Disposition: Home, Self-Care Prescriptions Prescriptions: No Action Classic 28 mg iron- 800 mcg tablet 1 tab PO DAILY Qty: 30 11RF Linzess 72 mcg capsule 72 mcg PO DAILY Referrals Follow up/Referrals: Maria T Deluna APRN [Primary Care Provider] - See instructions Activity Restrictions/Add. Instructions Additional Instructions/Restrictions: Follow-up with your family doctor within 48 hours to establish care for this visit to the emergency department and ensure improvement of symptoms. Antidiarrheals as needed. Clinical Impressions Clinical Impression: Diarrhea, Acute hypokalemia Instructions Patient Instructions: DI for Diarrhea and Traveler's Diarrhea -- Adult, DI for Diarrhea and Traveler's Diarrhea -- Child, DI for Nausea -- Adult, DI for Nausea -- Child Print Language Print Language: Slovak Discharge ED Provider: Jaydon Medeiros General Adult HPI General Chief complaint: Nausea/Vomiting/Diarrhea Stated complaint: diarrhea, light-headed Time Seen by Provider: 09/20/24 21:08 Mode of Arrival: Ambulatory Source of Information: Patient Limitations: No Limitations Description of Symptoms (Recalled from ER Triage Doc. by RN): pt reports diarrhea x3 days with lower abdominal pain and is now feeling lightheaded. History of Present Illness HPI narrative: Please note that above description of symptoms, in this electronic medical record under categorization of recalled from ER triage doctor by RN are reflective of an initial nursing assessment, however, is not reflective of my full history and physical exam that was personally taken and clarified. Consequentially, this preceding description of symptoms, which may include the patient's categorized chief complaint in the EMR, do not reflect my personal clinical impression, and the ultimate description of history of present illness and patient stated complaints should be deferred to this section of the note. Unless stated otherwise or congruent with this section of the note, additional signs, symptoms, or incongruence should be interpreted as inaccurate with my clinical impression. Related Data Home Medications ?Medication ?Instructions ?Recorded ?Confirmed linaclotide 72 mcg capsule 72 mcg PO DAILY 01/14/23 08/05/24 (Linzess) Previous Rx's ?Medication ?Instructions ?Recorded vits no.126-ferrous fum 1 tab PO DAILY #30 tabs 04/27/24 28 mg iron-folic acid 800 mcg tablet (Classic ) Allergies Allergy/AdvReac Type Severity Reaction Status Date / Time corn AdvReac Verified 08/05/24 15:55 [facility] Disclaimer: The information contained in this section may have been updated after the patient was seen, as this information can be updated by other users. Medical History IBS (irritable bowel syndrome) Surgical History No significant past surgical history Family History Other Cancer Diabetes Heart attack Hypertension Substance abuse Social History Smoking Status: Never smoker alcohol intake: current alcohol intake frequency: holidays/special occasions only substance use type: denies use current occupational status: student Travel in the last 8 weeks: None Have you lived/traveled outside [place] in past 30 days?: No Contact w/someone who lives/traveled outside US past 30 days?: No Exposure to someone with infectious disease in past 14 days?: No Do you have a fever (greater than 100.4 F or 38 C)?: No Have you tested positive for COVID-19: No Exposed to someone with COVID-19 in past 14 days?: No Do you have a sore throat?: No Do you have a cough?: Yes Do you have any weakness?: Yes Do you have any diarrhea?: Yes Are you experiencing any unusual bleeding?: No Do you have any muscle aches/pain?: No Do you have any abdominal pain?: No Are you experiencing loss of taste or smell?: No Other Medical History Have you received the Flu Vaccine for this season: No Have you received the Pneumonia Vaccine: No ROS Obtained: Yes All systems reviewed & no additional complaints except as documented Physical Exam General General appearance: alert and obese Head Head exam: atraumatic and normocephalic Eye Eye exam: Present normal appearance, PERRL and EOMI Neck Neck exam: Present normal inspection, full ROM and trachea midline Respiratory Respiratory exam: Absent respiratory distress, wheezes, stridor, accessory muscle use or prolonged expiratory phase Cardiovascular Cardiovascular exam: Present other (Pulses equal symmetric in upper and lower extremities) Abdominal Exam Abdominal exam: Present soft; Absent distention, tenderness, guarding, rebound, rigidity, normal bowel sounds or pulsatile mass Extremities Exam Extremities exam: Absent edema Neurological Exam Neurological exam: Present alert, oriented X3 and CN II-XII intact; Absent motor sensory deficit Skin Skin exam: Present warm and dry; Absent diaphoresis or erythema Medical Decision Making Medical Records Medical records reviewed: Yes I reviewed the patient's medical records. Screening: Per USPSTF and CDC recommendations, given the prevalence of disease in our region, it is our hospital?s policy to screen for HIV and viral Hepatitis for all patients aged 18 and over and those with ongoing risk factors. Alek Inquiry Pt receiving controlled substance: No Alek was queried for this patient: No Vital Signs: 09/20/24 20:54 09/20/24 21:06 09/20/24 23:37 Temperature 97.5 F L 98 F Temperature Source Oral Pulse Rate 101 H 90 Pulse Rate [Right] 128 H Respiratory Rate 18 20 18 Blood Pressure 124/84 130/80 Blood Pressure [Right Arm] 143/94 H Blood Pressure Mean [Right Arm] 110 02 Sat by Pulse Oximetry 97 99 Oxygen Delivery Method Room Air Room Air Room Air Lab Data Lab Results 09/20/24 21:15: WBC 7.7, RBC 6.03 H, Hgb 15.5, Hct 46.3, MCV 76.8 L, MCH 25.7 L, MCHC 33.5, RDW 13.2, Plt Count 256, MPV 12.1 H, Neut % (Auto) 56.5, Lymph % (Auto) 30.6, [place] % (Auto) 10.5 H, Eos % (Auto) 1.6, Baso % (Auto) 0.5, Neut # (Auto) 4.4, Lymph # (Auto) 2.4, [place] # (Auto) 0.8, Eos # (Auto) 0.1, Baso # (Auto) 0.0, Sodium 135 L, Potassium 3.2 L, Chloride 102, Carbon Dioxide 21 L, [place] 15.2 H, BUN 14, Creatinine 0.90, Estimated Creat Clear 152, Estimated GFR 77, Est GFR ( Amer) 93, Glucose 179 H, Calcium 9.5, Total Bilirubin 0.5, AST 34, ALT 29, Alkaline Phosphatase 164 H, Total Protein 8.4 H, Albumin 4.6, Globulin 3.8 H, Albumin/Globulin Ratio 1.2, HCG, Quant < 2 12/29/24 22:29: Urine Color Yellow, Urine Appearance Clear, Urine pH 6.0, Ur Specific [place] 1.025, Urine Protein 1+ A, Urine Glucose (UA) Negative, Urine Ketones Trace, Urine Blood Trace-i, Urine Nitrate Negative, Urine Bilirubin 1+ A , Urine Urobilinogen 1.0, Ur Leukocyte Esterase Negative, Urine RBC 5-10, Urine WBC Occasional, Ur Squamous Epith Cells 3-5, Urine Bacteria Trace, Urine Mucus 2+ 09/20/24 21:15 09/20/24 21:15 Orders (Tests/Meds): ED MEDICATIONS Discontinued Medications Generic Name Dose Route Start Last Admin Trade Name Freq PRN Reason Stop Dose Admin Lactated Ringer's 1,000 mls @ 999 mls/hr 09/20/24 21:43 09/20/24 21:50 Lactated Ringer's 1000 Ml Bag IV 09/20/24 22:43 999 mls/hr .Q1H1M ONE Administration Potassium Chloride 60 meq 09/20/24 23:16 09/20/24 23:19 Potassium Chloride 20meq Tab PO 09/20/24 23:17 60 meq ONCE ONE Administration ORDERS Category Date Time Status CBC w/Auto Diff [Complete Blood Count Auto Diff] Stat Lab 09/20/24 21:15 Completed CMP [Comprehensive Metabolic Panel] Stat Lab 09/20/24 21:15 Completed HCG,Quantitative Stat Lab 09/20/24 21:15 Completed UA [Urinalysis and Microscopic] Stat Lab 09/20/24 22:29 Completed Medical Decision Narrative: This 20-year-old female history of IBS presenting with abdominal cramping and diarrhea. Patient states that she started having diarrhea today. Nonbloody, not mucousy. No vaginal discharge or bleeding, urinary symptoms, fevers, chills, abdominal pain, or any other concerns. Cramping is lower abdominal, does not radiate. She tried taking loperamide, this has helped modestly. Not tolerating much p.o. intake. History obtained with patient. On arrival, patient very clinically well-appearing and in no acute distress. Speaking in full sentences, appropriately interactive, appears jovial. Abdomen is soft, nontender, nondistended. Patient actually has no acute complaints. She is modestly tachycardic 110 115 bpm on my evaluation. Nontachypneic. Differential includes gastritis, enteritis, PUD, pancreatitis, , UTI, among others. Hematologic workup initiated, urine collected. Patient was given 1 L fluids. On reevaluation, patient without any acute complaints. Independent interpretation of workup without any actionable findings. Urine negative. I feel this is likely event representative of enteritis or flareup of patient's IBS. Because patient at baseline without signs or symptoms of clinical decompensation, deemed appropriate for discharge. Results were relayed to patient who voiced understanding and were agreeable to outpatient management and follow up. I discussed my clinical impression with patient and answered all questions. At this time, the evidence for any other entities in the differential is insufficient to warrant any further testing or ED observation. This was explained as well. Advisory was given that persistent or worsening symptoms require further evaluation. I confirmed the understanding of this discussion. Belling Machine Operator disclaimer Much of this encounter note is an electronic waiter/waitress dining car spoken language to printed text. Electronic waiter/waitress dining car of the spoken language may permit errors. Although I have reviewed the note, some errors may still exist. Critical Care Critical Care Time Critical Care Time: No
[2024-09-20 21:48] LABS: Basophils % 0.5 % (0.1-2.0); Eosinophils # 0.1 K/mm3 (0.0-0.4); Eosinophils % 1.6 % (0.1-12.0); Hematocrit 46.3 % (37.0-47.0); Hemoglobin 15.5 g/dL (12.2-16.2); Lymphocytes # 2.4 K/mm3 (0.7-4.5); Lymphocytes % 30.6 % (10-50); Mean Corpuscular HGB Conc 33.5 g/dL (31.8-35.4); Mean Corpuscular Hemoglobin 25.7 pg (27.0-31.2); Mean Corpuscular Volume 76.8 fl (81-99); Mean Platelet Volume 12.1 fl (7.4-10.4); Monocytes # 0.8 K/mm3 (0.1-1.0); Monocytes % 10.5 % (1.7-9.3); Neutrophils # 4.4 K/mm3 (1.8-7.8); Neutrophils % 56.5 % (37.0-80.0); Platelet Count 256 K/mm3 (142-424); Red Blood Count 6.03 M/mm3 (4.20-5.40); Red Cell Distribution Width 13.2 % (11.5-17.5); White Blood Count 7.7 K/mm3 (4.8-10.8)
[2024-09-20 21:50] LABS: Albumin Level 4.6 g/dl (3.5-5.0); Chloride 102 mmol/L (98-107); Potassium 3.2 mmoL/L (3.5-5.1); Sodium 135 mmol/L (136-145)
[2024-09-20] MEDS: LACTATED RINGERS 1000ML 1,000 ML 999 ML IV (21:50)
[2024-09-20 21:53] LABS: Alanine Aminotransferase 29 U/L (12-78); Albumin/Globulin Ratio 1.2 (1.1-1.8); Alkaline Phosphatase 164 U/L (38-126); Anion Gap 15.2 mEq/L (5-15); Aspartate Amino Transferase 34 U/L (14-36); Bilirubin,Total 0.5 mg/dl (0.2-1.3); Blood Urea Nitrogen 14 mg/dl (7-17); Calcium 9.5 mg/dl (8.4-10.2); Carbon Dioxide 21 mmol/L (22.0-30.0); Creatinine Clearance Estimated 152 mL/min (50-200); Estimated Glomerular Filt Rate 77 ml/min (>60); GFR (African American) 93 ML/MIN (>60); Globulin 3.8 g/dL (1.3-3.2); Glucose 179 mg/dl (74-100); Total Protein,Serum 8.4 g/dl (6.3-8.2)
[2024-09-20 22:15] LABS: HCG,Quantitative < 2 mIU/ml (0-5.42)
[2024-09-20 22:35] LABS: Microscopic, Urine URINE MICROSCOPIC (MICROSCOPIC)
[2024-09-20 22:36] LABS: Appearance,Urine CLEAR (Clear); Blood, Urine TRACE-I (Negative); Color,Urine YELLOW (Yellow); Glucose,Urine (UA) Negative (Negative); Ketones,Urine TRACE (Negative); Leukocyte Esterase,Urine Negative (Negative); Nitrate,Urine Negative (Negative); Protein,Urine 1+ (Negative); Specific Gravity, Urine 1.025 (1.005-1.030)
[2024-09-20 22:42] LABS: Bilirubin,Urine 1+ (Negative)
[2024-09-20 22:48] LABS: Bacteria,Urine Trace /lpf; Mucus,Urine 2+ /lpf; WBC,Urine Occasional #/hpf (0-3)
[2024-09-20] MEDS: POTASSIUM CHLORIDE 20MEQ TAB 60 MEQ PO (23:19)
[2024-09-20 23:37] VITALS: BP 130/80; PULSE 90; RESP 18; TEMP 36.6; O2SAT 100
== END 2024-09-20 23:38 | disposition home or self-care (01) ==
PROVIDERS: Emergency Provider Emergency Medicine; PCP Nurse Practitioner
DX: E87.6 Hypokalemia (principal); R10.30 Lower abdominal pain, unspecified; R42 Dizziness and giddiness; R19.7 Diarrhea, unspecified
CPT/HCPCS: 80053; 81001; 84702; 85025; 96360; 99283; J7120

== ENCOUNTER 2025-03-01 15:09 | Emergency (ER) | payer MEDICAID, SELFPAY ==
--- OUTSIDE RECORDS SUMMARY | 2025-03-01 15:17 | XMS_ITS | Data Portability ---
Author Organization [place] [facility] & RIP Cárdenas ADMIN Address [address] [place] [address] Care Team Providers Care Elevator Attendant Name Role Phone ENA CARSON Primary Care Provider [phone] CLARISSA ANDRADE Tele Rn Assessment No assessment recorded. Plan of Treatment Reminders Order Date Submit Date Provider Last Modified By Organization Details Last Modified Time Details Appointments None recorded. Lab None recorded. Referral None recorded. Procedures None recorded. Surgeries None recorded. Imaging None recorded. Medication Orders Trulance 3 mg tablet 2023 024 [facility], [address] [place], [address], 4 13:01:02 Linzess 72 mcg capsule 2022 023 [address] [place], [address], 3 09:33:06 Linzess 72 mcg capsule 2021 [address] [facility], [address] [place], [address], 2 11:21:44 Patient TargetsNo targets recorded. Patient InstructionsNo instructions recorded. Reason for Referral None Reported. Problems Name Problem SNOMED Code Status Onset Date Resolution Date Notes Provider Name and Address Organization Details Recorded Time Irritable bowel syndrome characterized by constipation 516550365 Active 2021 Clarissa Andrade NP [address] [place] [address], [address], [place], [address] [place] [address] - [facility] - [place] & [place] 2 15:25:00 Generalized abdominal pain 098134766 Active 2021 Clarissa Andrade NP [address], [address], [place], [place], [address], [place] - [facility] & [place] 2 15:25:00 Chronic idiopathic constipation 00527795 Active 2021 Clarissa Andrade NP [address], [address], [place], [place], [address], [place] - [facility] & [place] 2 15:08:37 Problem Notes None recorded. Medical Equipment None Reported. Allergies No known drug allergies Medications Name Sig Start Date Stop Date Status Note LastModified by Organization Details LastModified Time amoxicillin 500 mg capsule TAKE ONE CAPSULE BY MOUTH EVERY 8 HOURS FOR 7 DAYS active Not Available Not Available No t Available prednisone 20 mg tablet TAKE ONE TABLET BY MOUTH TWICE DAILY FOR 3 DAYS active Not Available Not Available No t Available dicyclomine 20 mg tablet active Not Available Not Available Not Available cephalexin 500 mg capsule Take 1 capsule twice a day by oral route for 7 days. active Not Available Not Available No t Available omeprazole 20 mg capsule,adeline yed release active Not Available Not Available Not Available mupirocin 2 % topical ointment APPLY TOPICALLY TO THE AFFECTED AREA(S) TWICE DAILY FOR 14 DAYS active Not Available Not Available Not Available ondansetron 4 mg disintegrati ng tablet active Not Available Not Available No t Available medroxyproge sterone 150 mg/mL intramuscula r suspension INJECT 1ML INTRAMUSCUL URBANO ONCE EVERY 3 MONTHS DIRECTED active Not Available Not Available No t Available neomycin-shawn ymyxin-hydro elder 3.5 mg-10,000 unit/mL-1 % ear drops,susp INSTILL 4 DROPS INTO AFFECTED EAR(S) BY OTIC ROUTE 3 TIMES PER DAY active Not Available Not Available No t Available [facility] 50 mg/mL oral suspension Drink 20 mls of the liquid today and repeat in 2 weeks if needed. active Not Available Not Available No t Available Linzess 72 mcg capsule Take 1 capsule every day by oral route as directed for 30 days. 2022 active Not Available Not Available Not Avai lable Trulance 3 mg tablet Take 1 tablet every day by oral route for 90 days. 2023 active Not Available Not Available Not Avai lable Vitals Date Recorded Body height Body mass index (BMI) Body weight Body temperature Oxygen saturation Oxygen saturation in Arterial blood by Pulse oximetry Heart rate Provider Name and Address Organization Details Last Updated DateTime 4 160.02 cm 42.2 kg/m2 372599. 98 g 98 [degF] 97 % 97 % 76 /min Hannah Rica [place] [facility] & [place] 4 10:53:41 Date Recorded Body height Body mass index (BMI) Body weight Body temperature Oxygen saturation Oxygen saturation in Arterial blood by Pulse oximetry Heart rate Provider Name and Address Organization Details Last Updated DateTime 3 160.02 cm 40.2 kg/m2 698610. 47 g 98.6 [degF] 98 % 98 % 76 /min Hannah Rica [place] [facility] & [place] 3 13:16:09 Date Recorded Body height Body mass index (BMI) Body weight Body temperature Oxygen saturation Oxygen saturation in Arterial blood by Pulse oximetry Heart rate Provider Name and Address Organization Details Last Updated DateTime 2 160.02 cm 40 kg/m2 417393. 88 g 97 [degF] 99 % 99 % 106 /min Hannah Strauss [facility] & [place] 2 14:23:40 Social History None recorded. Functional Status Question Answer Note LastModified by Organizat ion Details LastModified Time Do you use any illicit or recreational drugs? No [email or web address] Information not available 08/29/2022 Do you or have you ever used any other forms of tobacco or nicotine? No [email or web address] Information not available 08/29/2022 What is your level of alcohol consumption? None Information not available 08/29/2022 Mental Status None recorded. Family History Relationship Description Onset Age of this Age Resolved Age Notes LastModified by Organization Details LastModified Time Father No current problems or disability [email or web address] Not available 08/29 14:50:59 Mother No current problems or disability [email or web address] Not available 08/29 14:50:59 Medical History No medical history recorded. Gynecological HistoryNo gynecological history recorded. Obstetrics History GPAL:G 0 P 0 0 0 0 Past Encounters Encounter ID Performer Location Encounter Start Date Encounter Closed Date Diagnosis/Indication Diagnosis SNOMED-CT Code Diagnosis ICD10 Code Diagnosis Note [id number] Clarissa Andrade NP [facility] [address] [place] [phone] 07/11/2022 14:23:57 07/13/2022 09:39:15 Irritable bowel syndrome characterized by constipation 688249811 K58.1 Ongoing symptoms since middle school. previously failed treatment with MiraLax, fiber supplement s, and OTC stool softeners. She drinks primarily water and eating a high-fiber diet. Recommend daily use of fiber supplement s as well. recommend trial of Linzess 72 mcg, 145 mcg in 290 mcg, samples for 8 days each provided to patient clinic today. Will send prescripti on based on response to sample medication . Generalize d abdominal pain [id number] R10.84 Generalize d abdominal pressure and bloating suspect secondary to constipati on. Plan to treat as above will continue to monitor. Consider colonoscop y to further evaluate based on symptoms. [id number] Clarissa Andrade NP [facility] [address] [place] [phone] 08/29/2022 13:49:50 08/29/2022 15:13:26 Chronic idiopathic constipation 13163246 K59.04 Improved with use of Linzess 72 mcg samples. Will send Rx today. Abdominal pain has resolved at this time. Previously failed treatment with miralax, fiber supplement s, and OTC stool softeners. Linzess 72 mcg samples 12 days provided to patient in clinic today. [id number] Clarissa Andrade NP [facility] [address] [place] [phone] 02/27/2023 13:06:52 02/27/2023 14:04:34 Chronic idiopathic constipation 76362904 K59.04 Controlled with use of Linzess 72 mcg however experienci ng single episode of diarrhea 1-2 hours after use. She avoids taking Linzess with meals. Abdominal bloating and pain has resolved with use. Will refill Linzess 72 mcg today. Samples of Trulance 3 mg 9 days provided to patient in clinic today. Will send Rx based on response to sample medication . Previously failed treatment with miralax, fiber supplement s, and OTC stool softeners. [id number] Clarissa Andrade NP [facility] [address] [place] [address] 10/16/2023 10:40:35 10/16/2023 12:20:04 Irritable bowel syndrome characterized by constipation 191187415 K58.1 Controlled with use of Trulance 3 mg. Reports daily bowel movements with use. Will send refills today. Previously failed treatment with Linzess 72 mcg, MiraLax, fiber supplement s, and OTC stool softeners. Health Concerns Section Related Observation LastModified by Organization Detai ls LastModified Time None Recorded Concern Status LastModified by Organization Details LastModified Time None Recorded Advance Directives Directive None Recorded Payers Insurance Date Sequence Insurance Name Policy Number Policy Ramires Covered Member ID Ramires Member ID Guarantor Name 10/11/2024 1 [facility] (MEDICAID HMO) [id number] Eva Garcia [id number] Eva Garcia Notes Date Note Type Note Provider Name and Address Organization Details Recorded Time 07/11/2022 text/html 22-year-old anne montilla with past medical history of IBS-C Presents today for evaluation of constipation and abdominal pain. Symptoms ongoing since middle school. She will go several days without bowel movements with generalized abdominal pressure and fullness. Previously failed treatment with MiraLax, fiber, OTC stool softeners. She drinks primarily water and has been eating a high fiber diet with some improvement of symptoms. Last bowel movement yesterday. No hematochezia. Reports several ED visits due to constipation and abdominal pain. Clarissa Andrade NP [address] [place] [address], [address], [address], [place] - [facility] - [place] & [place] 07/11/2022 15:40:27 08/29/2022 text/html Patient returns to clinic today for follow-up on constipation. Previously provided samples of Linzess for treatment. Linzess 72 mcg samples improved constipation as well as abdominal pain. She is requesting prescription today. Previously failed treatment with MiraLax, fiber, OTC stool softeners. Clarissa Andrade NP [address] [facility], [address], [address], [place] - [facility] & [place] 08/29/2022 15:09:43 02/27/2023 text/html Patient returns to clinic today for follow-up on constipation. She continues Linzess 72 mcg daily for treatment with improved abdominal bloating and pain. She does report a single episode of diarrhea 1-2 hours after taking Linzess which she is not satisfied with. Previously failed treatment with MiraLax, fiber, OTC stool softeners. Clarissa Andrade NP [address] [facility], [address], [place], [address], [place] - [facility] & [place] 02/27/2023 14:02:06 10/16/2023 text/html Patient returns to clinic today for follow-up on constipation. She continues Trulance 3 mg daily with improved constipation and abdominal pain. Reports daily bowel movements at this time with only occasional diarrhea. She is requesting refills today. Previously failed treatment with Linzess 72 mcg, MiraLax, fiber, OTC stool softeners. Clarissa Andrade NP [address] [facility], [address], [place], [address], [place] - [facility] & [place] 10/16/2023 11:16:53 OBGyn Episode No OBEpisode recorded.
--- OUTSIDE RECORDS SUMMARY | 2025-03-01 15:17 | XMS_ITS | Continuity of Care Document ---
Author Organization [employer] Address [address] [place] [address] Care Team Providers Care Landfill Gas Plant Field Technician Name Role Phone BELGICA BEYER Vocational Nurse Assessment No assessment recorded. Plan of Treatment Reminders Order Date Submit Date Provider Last Modified By Organization Details Last Modified Time Details Appointments CONSULT 2024 02:30P M Giselle Deluna APRN Not available Not available Not available FOLLOW UP 15 2024 10:30A M Giselle Deluna APRN Not available Not available Not available Lab None recorded . Referral None recorded . Procedures None recorded . Surgeries None recorded . Imaging None recorded . Medication Orders None recorded . Patient TargetsNo targets recorded. Patient InstructionsNo instructions recorded. Reason for Referral None Reported. Problems Name Problem SNOMED Code Status Onset Date Resolution Date Notes Provider Name and Address Organization Details Recorded Time [employer]obi asis 905797443 Active [address] [facility], [address] , [employer]. 3 15:22:13 Onychomy cosis 247379504 Completed 202104/20/2022 Problem Code: B35.1; Problem Code Type: ICD-10; Not Available [employer] 2 22:21:16 Disorder of upper respirat ory system 115970542 Completed 202107/10/2022 Problem Code: J06.9; Problem Code Type: ICD-10; BLAYNE oreilly [facility]. 10:17:15 Constipa tion 30098420 Active 2021 Not Available [facility] 22:21:17 Generali zed abdomina l pain 745267058 Completed 202107/10/2022 Problem Code: R10.84; Problem Code Type: ICD-10; BLAYNE oreilly, [facility] 10:17:15 Body mass index 30+ - obesity 332859254 Active 2021 Problem Code: Z68.34; Problem Code Type: ICD-10; Not Available [facility] 22:21:17 Acute gastriti s 70498405 Completed 202107/10/2022 Problem Code: K29.00; Problem Code Type: ICD-10; BLAYNE oreilly, [employer] 10:17:15 Problem Notes None recorded. Medical Equipment None Reported. Allergies No known drug allergies Medications Name Sig Start Date Stop Date Status Note LastModified by Organization Details LastModified Time amoxicillin 500 mg capsule TAKE ONE CAPSULE BY MOUTH EVERY 8 HOURS FOR 7 DAYS 09/24 completed Not Available Not Available Not Available metformin 500 mg tablet TAKE ONE TABLET BY MOUTH TWICE DAILY active Not Available Not Available No t Available neomycin-po lymyxin-hyd rocort 3.5 mg/mL-10,00 0 unit/mL-1 % ear solution INSTILL 4 DROPS INTO AFFECTED EAR(S) BY OTIC ROUTE 3 TIMES PER DAY 10/13 completed Not Available Not Available Not Available prednisone 20 mg tablet TAKE ONE TABLET BY MOUTH TWICE DAILY FOR 3 DAYS 09/24 completed Not Available Not Available Not Available dicyclomine 20 mg tablet take 1 tablet (20 mg) by oral route 4 times per day 04/05 completed Not Available Not Available Not Available cephalexin 500 mg capsule Take 1 capsule twice a day by oral route for 7 days. 07/01 completed Not Available Not Available Not Available omeprazole 20 mg capsule,del ayed release take 1 capsule (20 mg) by oral route once daily before a meal 04/05 completed Not Available Not Available Not Available mupirocin 2 % topical ointment APPLY TOPICALLY TO THE AFFECTED AREA(S) TWICE DAILY FOR 14 DAYS 02/02 completed Not Available Not Available Not Available Vitamin D2 1,250 mcg (50,000 unit) capsule Take 1 capsule every week by oral route for 90 days. 01/30 completed Not Available Not Available Not Available ondansetron 4 mg disintegrat ing tablet 07/10 completed Not Available Not Available Not Available medroxyprog esterone 150 mg/mL intramuscul ar suspension INJECT 1ML INTRAMUSC ULARLY ONCE EVERY 3 MONTHS DIRECTED 10/13 completed Not Available Not Available Not Available neomycin-po lymyxin-hyd rocort 3.5 mg-10,000 unit/mL-1 % ear drops,susp INSTILL 4 DROPS INTO AFFECTED EAR(S) BY OTIC ROUTE 3 TIMES PER DAY 10/13 completed Not Available Not Available Not Available rosuvastati n 20 mg tablet TAKE ONE TABLET BY MOUTH EVERY DAY active Not Available Not Available No t Available [facility] 50 mg/mL oral suspension Drink 20 mls of the liquid today and repeat in 2 weeks if needed. 08/06 completed Not Available Not Available Not Available Nexplanon 68 mg subdermal implant Inject by subcutane ous route. active Not Available Not Available No t Available Linzess 72 mcg capsule take 1 capsule (72 mcg) by oral route once daily on an empty stomach at least 30 minutes before 1st meal of the day 02/02 completed Not Available Not Available Not Available Vitals Date Recorded Body height Body mass index (BMI) Body weight Body temperature Heart rate Oxygen saturation Oxygen saturation in Arterial blood by Pulse oximetry Systolic blood pressure Diastolic blood pressure Provider Name and Address Organization Details Last Updated DateTime 5 160.02 cm 42.5 kg/m2 689012. 17 g 98.3 [degF] 95 /min 97 % 97 % 124 mm[Hg] 87 mm[Hg] CHIQUITA ALLEN [facility] 5 10:53:05 Social History Question Answer Notes LastModified by Organizat ion Details LastModified Time Tobacco Smoking Status Never Smoker BLAYNE oreilly [facility]. 07/10/2022 10:18:36 Do You Have An Advance Directive? No [email or web address] Information n ot available 07/17/2023 Is Your Home Air Conditioned? Yes Information not available 04/05/2023 Are You Blind Or Do You Have Difficulty Seeing? No [email or web address] Information n ot available 07/10/2022 What Is Your Level Of Caffeine Consumption? Occasional Information not available 04/05/2023 Are You A Caregiver? No Information not available 04/05/2023 In The 14 Days Before Symptom Onset, Have You Had Close Contact With A Laboratory-confirm ed COVID-19 While That Case Was Ill? No Information n ot available 07/01/2023 In The 14 Days Before Symptom Onset, Have You Had Close Contact With A Person Who Is Under Investigation For COVID-19 While That Person Was Ill? No Information not available 07/01/2023 Have You Been To An Area Known To Be High Risk For COVID-19? No Information not available 04/05/2023 Are You Deaf Or Do You Have Serious Difficulty Hearing? No [email or web address] Information not available 07/10/2022 Have There Been Any Changes To Your Family Or Social Situation? No Information no t available 04/05/2023 Do You Have A Medical Power Of Vinyl Welder And Fabricator? No [email or web address] Information not available 07/17/2023 What Was The Date Of Your Most Recent Tobacco Screening? 02/02/2025 [email or web address] Information not available 02/02/2025 What Is Your Relationship Status? Single [email or web address] Information not available 07/10/2022 Do You Use Your Seat Belt Or Car Seat Routinely? Yes Information not available 04/05/2023 Do You Have Smoke And Carbon Monoxide Detectors In Your Home? Yes Information not available 04/05/2023 Have You Recently Traveled Abroad? No Information not available 04/05/2023 Do You Have Difficulty Walking Or Climbing Stairs? No [email or web address] Information not available 07/10/2022 Sex: Female Functional Status Question Answer Note LastModified by Organizat ion Details LastModified Time Do you use any illicit or recreational drugs? No Information not available 04/05/2023 What is your level of alcohol consumption? None Information not available 07/10/2022 Are you currently employed? No Information not available 04/05/2023 Do you have transportation difficulties? No [email or web address] Information not available 07/10/2022 Are you able to walk? YESWOREST [email or web address] Information not available 07/10/2022 Do you have difficulty doing errands alone? No [email or web address] Information not available 07/10/2022 Are you able to care for yourself? Yes [email or web address] Information not available 07/10/2022 Do you have difficulty dressing or bathing? No [email or web address] Information not available 07/10/2022 Mental Status Question Answer Note LastModified by Organization D etails LastModified Time Do you have difficulty concentrating, remembering or making decisions? No Information no t available 07/10/2022 Family History Relationship Description Onset Age of this Age Resolved Age Notes LastModified by Organization Details LastModified Time Father Family history of diabetes mellitus type 2 [email or web address] Not available 07/10 10:17:49 Medical History Condition Response Hospitalizations N Emergency room visit since last appointm ent. N Gynecological History Statement/Question Response Date of Last Pap Smear Most Recent Mammogram Obstetrics History GPAL:G 0 P 0 0 0 0 Immunizations Vaccine Type Date Status Note Provider Nam e and Address Organization Details Recorded Time Hib-Hep B 1 completed Kassi Contra Costa null, [employer] 07/01/2023 17:06:29 Hib-Hep B 0 completed Kassi Contra [place] null, [employer] 07/01/2023 17:06:29 IPV 1 completed Kassi Jake null, [employer] 07/01/2023 17:06:29 IPV 4 completed Kassi Jake null, [employer] 07/01/2023 17:06:29 IPV 0 completed Kassi [place] null, [employer] 07/01/2023 17:06:29 IPV 0 completed Kassi Contra Costa null, [facility] [employer] 07/01/2023 17:06:29 MMR 4 completed Kassi Contra Costa null, [facility] [employer] 07/01/2023 17:06:29 MMR 1 completed Kassi Contra Costa null, [employer] 07/01/2023 17:06:29 pneumococcal conjugate PCV 7 1 completed Kassi Contra Costa null, [employer] 07/01/2023 17:06:29 pneumococcal conjugate PCV 7 1 completed Kassi Jake null, [employer] 07/01/2023 17:06:29 Tdap 2 completed Kassi Contra Costa null, [employer] 07/01/2023 17:06:29 varicella 1 completed Kassi Contra Costa null, [employer] [facility] [employer] 07/01/2023 17:06:29 varicella 2 completed Kassi Contra Costa null, [employer] 07/01/2023 17:06:29 HPV, quadrivalent 3 completed Kassi Contra Costa null, [employer] 07/01/2023 17:06:29 HPV, quadrivalent 2 completed Kassi Contra Costa null, [employer] 07/01/2023 17:06:29 HPV, quadrivalent 2 completed Kassi Contra Costa null, [employer] 07/01/2023 17:06:29 Hep B, adolescent or pediatric 0 completed Kassi Contra Costa null, [employer] 07/01/2023 17:06:29 Hep A, ped/adol, 2 dose 8 completed Kassi Contra Costa null, [facility] - [employer] 07/01/2023 17:06:29 Hep A, ped/adol, 2 dose 8 completed Kassi Contra Costa null, [employer] 07/01/2023 17:06:29 Hib (PRP-OMP) 0 completed Kassi Contra Costa null, [employer] 07/01/2023 17:06:29 meningococcal MCV4P 8 completed Kassi Contra Costa null, [employer] 07/01/2023 17:06:29 DTaP, unspecified formulation 1 completed Kassi Jake null, [employer] 07/01/2023 17:06:29 DTaP, unspecified formulation 4 completed Kassi Jake null, [employer] 07/01/2023 17:06:29 DTaP, unspecified formulation 0 completed Kassi Contra Costa null, [employer] 07/01/2023 17:06:29 DTaP, unspecified formulation 1 completed Kassi Jake null, [employer] 07/01/2023 17:06:29 DTaP, unspecified formulation 0 completed Kassi Contra [place] null, [employer] 07/01/2023 17:06:29 meningococcal MCV4, unspecified formulation 2 completed Kassi Contra Costa null, [employer] 07/01/2023 17:06:29 Influenza, split virus, quadrivalent, PF 6 completed Kassi Contra Costa null, [employer] 07/01/2023 17:06:29 Past Encounters Encounter ID Performer Location Encounter Start Date Encounter Closed Date Diagnosis/Indication Diagnosis SNOMED-CT Code Diagnosis ICD10 Code Diagnosis Note [id number] Maria T Deluna APRN [address] [address] 02/02/2025 10:41:25 02/02/2025 11:18:20 Type 2 diabetes mellitus 18781096 E11.9 Z79.4 Mixed hyperlipidemia 267 340430 E78.2 Body mass index 40+ - severely obese 133563308 Z68.41 Health Concerns Section Related Observation LastModified by Organization Detai ls LastModified Time None Recorded Concern Status LastModified by Organization Details LastModified Time None Recorded Payers Encounter Date Sequence Insurance Name Policy Number Policy Ramires Covered Member ID Ramires Member ID Guarantor Name 02/02/2025 1 [facility] (MEDICAID HMO) Evatalya Garcia [id number] Eva Jose Notes Date Note Type Note Provider Name and Address Organization Details Recorded Time 02/02/2025 text/html pt here today fo r medication refills. pt states shes doing well on current medication regime and has no new complaints today. A1C 6.4, 7.0 at last visit. pt states that she forgets to take her medication sometimes, especially at night. pt should be out of meds but has around a month left. highly encouraged pt to take meds daily as prescribed. Maria T Deluna APRN [address] [facility], [place], [address], [facility] [employer] 02/02/2025 16:59:02 OBGyn Episode No OBEpisode recorded.
--- OUTSIDE RECORDS SUMMARY | 2025-03-01 15:17 | XMS_ITS | Data Portability ---
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 Plan of Treatment Reminders Order Date Submit Date Provider Last Modified By Organization Details Last Modified Time Details Appointments CONSULT 2024 02:30P M Giselle Deluna APRN Not available Not available Not available FOLLOW UP 15 2024 10:30A M Giselle Deluna APRN Not available Not available Not available Lab HbA1c (hemoglob in A1c), blood 2024 025 [facility] [address] [place] [address], [address], 10/14/2024 08:11:44 vitamin D, 25-hydrox y, total, serum 2024 025 [email or web address] [address] [place] [address], [address], 10/14/2024 08:11:44 lipid panel, serum 2024 025 [facility], [facility] [place], [address], 10/14/2024 08:11:43 CBC w/ auto diff 2024 025 [email or web address] [place], [address], 10/14/2024 08:11:41 CMP, serum or plasma 2024 025 [facility] [address] [place], [address], 10/14/2024 08:11:42 TSH + free T4, serum 2024 025 [facility] ([place]), [address] [place], [address], 10/14/2024 08:11:41 vitamin B12, serum 2023 024 [facility], [address], [place], [address], 09/25/2023 09:02:54 vitamin D, 25-hydrox y, total, serum 2023 024 [facility], [address], [place], [address], 09/25/2023 09:02:55 lipid panel, serum 2023 024 [facility], [address], [place], [address], 09/25/2023 09:02:52 CBC w/ auto diff 2023 024 [facility], [address], [place], [address], 09/25/2023 09:02:53 CMP, serum or plasma 2023 024 [facility], [address], [place], [address], 09/25/2023 09:02:52 TSH, serum or plasma 2023 024 [facility], [address], [place], [address], 09/25/2023 09:02:54 TSH, serum or plasma 2023 024 [email or web address] [facility], [address], [place], [address], 10/04/2023 08:53:56 Referral None recorded. Procedures None recorded. Surgeries None recorded. Imaging None recorded. Medication Orders metformin 500 mg tablet 2024 025 [facility], [address] [place] [address], [address], 11/06/2024 10:15:39 Crestor 20 mg tablet 2024 025 [facility], [address] [place] [address], [address], 11/06/2024 10:15:39 neomycin- polymyxin -hydrocor t 3.5 mg/mL-10, 000 unit/mL-1 % ear solution 2023 025 [facility], [address] [place] [address], [address], 10/13/2024 09:15:48 Patient TargetsNo targets recorded. Patient InstructionsNo instructions recorded. Reason for Referral None Reported. Results Created Date Observation Date Name Description Value Unit Range Abnormal Flag Note LastModifiedBy Organization Detail LastModifiedTime 09/24/1909/25/2023 LIPID PANEL , STAND SARIAH cholesterol, total 176 mg/dL <200 normal Not Available [facility] [place] [facility] [address] [place], [address], 09/25/2023 10:24:25 09/24/1909/25/2023 LIPID PANEL , STAND SARIAH HDL cholesterol 56 mg/dL > or = 50 normal Not Available [facility] [place] [facility] [address] [place], [address], 09/25/2023 10:24:25 09/24/19 24 09/25/2023 LIPID PANEL , STAND SARIAH triglyceride s 91 mg/dL <150 normal Not Available [facility] [place] [facility] [address] [facility] [facility], [place], [address], 09/25/2023 10:24:25 09/24/19 24 09/25/2023 LIPID PANEL , STAND SARIAH LDL-choleste rol 101 mg/dL _(olivia c) high Refer ence range : <100 Néstor able range <100 mg/dL for prima ry preve ntion ; <70 mg/dL for patie nts with CHD or diabe tic patie nts with > or = 2 CHD risk facto rs. LDL-C is now calcu lated using the Anaid n-Hop kins calcu latradha n, which is a valid ated novel radhameso harish provi ding astrid r accur acy than the Fried alea equat ion in the estim ation of LDL-C . Anaid izaguirre SS et al. DEEP. 2013; 310(1 9): 2061- 2068 (http ://ed ucati on.Qu estDi Operating Analytics. com/f aq/FA Q164) Not Available [facility] [place] [facility] [address] [facility], [place], [address], 09/25/2023 10:24:25 09/24/19 24 09/25/2023 LIPID PANEL , STAND SARIAH chol/HDLC ratio 3.1 (calc ) <5.0 normal Not Available [facility] [place] [facility] [address] [facility] [place], [address], 09/25/2023 10:24:25 09/24/19 24 09/25/2023 LIPID PANEL , STAND SARIAH non HDL cholesterol 120 mg/dL _(olivia c) <130 normal For patie nts with diabe logan plus 1 major ASCVD risk facto r, treat ing to a non-H DL-C goal of <100 mg/dL (LDL- C of <70 mg/dL ) is consi dered a thera peuti c optio n. Not Available [facility] [place] [facility] [address] [place], [address], 09/25/2023 10:24:25 09/24/19 24 09/25/2023 COMPR EHENS ESPERANZA METAB OLIC PANEL glucose 118 mg/dL 65-99 high Fasti ng refer ence inter dipika For someo ne witho ut known diabe logan, a gluco se value betwe en 100 and 125 mg/dL is consi stent with predi abete s and shoul d be confi rmed with a follo w-up test. Not Available [facility] [place] [facility] [address] [place], [address], 09/25/2023 10:24:27 09/24/19 24 09/25/2023 COMPR EHENS ESPERANZA METAB OLIC PANEL urea nitrogen (BUN) 8 mg/dL 7-25 normal Not Available [facility] [facility] [address] [place], [address], 09/25/2023 10:24:27 09/24/19 24 09/25/2023 COMPR EHENS ESPERANZA METAB OLIC PANEL creatinine 0.61 mg/dL 0.50-0 .96 normal Not Available [facility] [place] [facility] [address] [place], [address], 09/25/2023 10:24:27 09/24/19 24 09/25/2023 COMPR EHENS ESPERANZA METAB OLIC PANEL eGFR 129 mL/mi n/1.7 3m2 > or = 60 normal Not Available [facility] [place] [facility] [address] [place], [address], 09/25/2023 10:24:27 09/24/19 24 09/25/2023 COMPR EHENS ESPERANZA METAB OLIC PANEL BUN/creatini ne ratio SEE NOTE: (calc ) 6-22 Not Repor nishant: BUN and Creat inine are withi n refer ence range . Not Available [facility] [place] [facility] [address] [place], [address], 09/25/2023 10:24:27 09/24/19 24 09/25/2023 COMPR EHENS ESPERANZA METAB OLIC PANEL sodium 140 mmol/ L 135-14 6 normal Not Available [facility] [address] [place], [address], 09/25/2023 10:24:27 09/24/19 24 09/25/2023 COMPR EHENS ESPERANZA METAB OLIC PANEL potassium 4.0 mmol/ L 3.5-5. 3 normal Not Available [facility] [address] [place], [address], 09/25/2023 10:24:27 09/24/19 24 09/25/2023 COMPR EHENS ESPERANZA METAB OLIC PANEL chloride 105 mmol/ L 98-110 normal Not Available [facility] [address] [place], [address], 09/25/2023 10:24:27 09/24/19 24 09/25/2023 COMPR EHENS ESPERANZA METAB OLIC PANEL carbon dioxide 27 mmol/ L 20-32 normal Not Available [facility] [address] [place], [address], 09/25/2023 10:24:27 09/24/19 24 09/25/2023 COMPR EHENS ESPERANZA METAB OLIC PANEL calcium 9.4 mg/dL 8.6-10 .2 normal Not Available [facility] [address] [place], [address], 09/25/2023 10:24:27 09/24/19 24 09/25/2023 COMPR EHENS ESPERANZA METAB OLIC PANEL protein, total 7.6 g/dL 6.1-8. 1 normal Not Available [facility] [address] [facility] [place], [address], 09/25/2023 10:24:27 09/24/19 24 09/25/2023 COMPR EHENS ESPERANZA METAB OLIC PANEL albumin 4.4 g/dL 3.6-5. 1 normal Not Available [facility] [address] [place], [address], 09/25/2023 10:24:27 09/24/19 24 09/25/2023 COMPR EHENS ESPERANZA METAB OLIC PANEL globulin 3.2 g/dL_ (calc ) 1.9-3. 7 normal Not Available [facility] [address] [facility] [place], [address], 09/25/2023 10:24:27 09/24/19 24 09/25/2023 COMPR EHENS ESPERANZA METAB OLIC PANEL albumin/glob ulin ratio 1.4 (calc ) 1.0-2. 5 normal Not Available [facility] [employer] [facility] [address] [place], [address], 09/25/2023 10:24:27 09/24/19 24 09/25/2023 COMPR EHENS ESPERANZA METAB OLIC PANEL bilirubin, total 1.0 mg/dL 0.2-1. 2 normal Not Available [facility] [employer] [facility] [address] [place], [address], 09/25/2023 10:24:27 09/24/19 24 09/25/2023 COMPR EHENS ESPERANZA METAB OLIC PANEL alkaline phosphatase 121 U/L 31-125 normal Not Available [facility] t [employer] [facility] [address] [place], [address], 09/25/2023 10:24:27 09/24/19 24 09/25/2023 COMPR EHENS ESPERANZA METAB OLIC PANEL AST 16 U/L 10-30 normal Not Available [facility] [employer] [facility] [address] [place], [address], 09/25/2023 10:24:27 09/24/19 24 09/25/2023 COMPR EHENS ESPERANZA METAB OLIC PANEL ALT 20 U/L 6-29 normal Not Available [facility] [place] [facility] [address] [place], [address], 09/25/2023 10:24:27 09/24/19 24 09/25/2023 CBC (INCL UDES DIFF/ PLT) white blood cell count 8.5 thous and/u L 3.8-10 .8 normal Not Available [facility] [place] [facility] [address] [place], [address], 09/25/2023 09:02:53 09/24/19 24 09/25/2023 CBC (INCL UDES DIFF/ PLT) red blood cell count 5.02 she on/uL 3.80-5 .10 normal Not Available [facility] [place] [facility] [address] [place], [address], 09/25/2023 09:02:53 09/24/19 24 09/25/2023 CBC (INCL UDES DIFF/ PLT) hemoglobin 13.2 g/dL 11.7-1 5.5 normal Not Available [facility] [place] [facility] [address] [place], [address], 09/25/2023 09:02:53 09/24/19 24 09/25/2023 CBC (INCL UDES DIFF/ PLT) hematocrit 39.2 % 35.0-4 5.0 normal Not Available [facility] [place] [facility] [address] [place], [address], 09/25/2023 09:02:53 09/24/19 24 09/25/2023 CBC (INCL UDES DIFF/ PLT) MCV 78.1 fL 80.0-1 00.0 low Not Available [facility] [address] [place], [address], 09/25/2023 09:02:53 09/24/19 24 09/25/2023 CBC (INCL UDES DIFF/ PLT) MCH 26.3 pg 27.0-3 3.0 low Not Available [facility] [address] [facility] [facility] [place], [address], 09/25/2023 09:02:53 09/24/19 24 09/25/2023 CBC (INCL UDES DIFF/ PLT) MCHC 33.7 g/dL 32.0-3 6.0 normal Not Available [facility] [address] [place], [address], 09/25/2023 09:02:53 09/24/19 24 09/25/2023 CBC (INCL UDES DIFF/ PLT) RDW 13.6 % 11.0-1 5.0 normal Not Available [facility] [address] [place], [address], 09/25/2023 09:02:53 09/24/19 24 09/25/2023 CBC (INCL UDES DIFF/ PLT) platelet count 207 thous and/u L 140-40 0 normal Not Available [facility] [address] [place], [place] [address], [address], 09/25/2023 09:02:53 09/24/19 24 09/25/2023 CBC (INCL UDES DIFF/ PLT) MPV 12.3 fL 7.5-12 .5 normal Not Available [facility] [address] [place], [place] [address], [address], 09/25/2023 09:02:53 09/24/19 24 09/25/2023 CBC (INCL UDES DIFF/ PLT) absolute neutrophils 5304 cells /uL 1500-7 800 normal Not Available [facility] [address] [place], [address], 09/25/2023 09:02:53 09/24/19 24 09/25/2023 CBC (INCL UDES DIFF/ PLT) absolute lymphocytes 2491 cells /uL 850-39 00 normal Not Available [facility] [address], [place], [address], 09/25/2023 09:02:53 09/24/19 24 09/25/2023 CBC (INCL UDES DIFF/ PLT) absolute monocytes 502 cells /uL 200-95 0 normal Not Available [facility] [place] [facility] [address], [place], [address], 09/25/2023 09:02:53 09/24/19 24 09/25/2023 CBC (INCL UDES DIFF/ PLT) absolute eosinophils 162 cells /uL 15-500 normal Not Available [facility] [place] [facility] [address], [place], [address], 09/25/2023 09:02:53 09/24/19 24 09/25/2023 CBC (INCL UDES DIFF/ PLT) absolute basophils 43 cells /uL 0-200 normal Not Available [facility] [place] [facility] [address], [place], [address], 09/25/2023 09:02:53 09/24/19 24 09/25/2023 CBC (INCL UDES DIFF/ PLT) neutrophils 62.4 % normal Not Available [facility] [place] [facility] [address], [place], [address], 09/25/2023 09:02:53 09/24/19 24 09/25/2023 CBC (INCL UDES DIFF/ PLT) lymphocytes 29.3 % normal Not Available [facility] [place] [facility] [address], [place], [address], 09/25/2023 09:02:53 09/24/19 24 09/25/2023 CBC (INCL UDES DIFF/ PLT) monocytes 5.9 % normal Not Available [facility] [place] [facility] [address], [place], [address], 09/25/2023 09:02:53 09/24/19 24 09/25/2023 CBC (INCL UDES DIFF/ PLT) eosinophils 1.9 % normal Not Available [facility] [address] [place], [address], 09/25/2023 09:02:53 09/24/19 24 09/25/2023 CBC (INCL UDES DIFF/ PLT) basophils 0.5 % normal Not Available [facility] [address] [place], [address], 09/25/2023 09:02:53 09/24/19 24 09/25/2023 VITAM IN B12 vitamin B12 463 pg/mL 200-11 00 normal Not Available [facility] [address] [place], [address], 09/25/2023 10:03:08 09/24/19 24 09/25/2023 TSH W/REF DAWSON TO FT4 TSH w/reflex to FT4 0.95 mIU/L normal Refer ence Range > or = 20 Years 0.40- 4.50 Pregn bernie Range s First trime ster 0.26- 2.66 Secon d trime ster 0.55- 2.73 Third trime ster 0.43- 2.91 Not Available [facility] [address] [place], [address], 09/25/2023 10:03:09 09/24/19 24 09/25/2023 VITAM IN D,25- OH,TO JESUSITA,I A vitamin D,25-oh,tota l,ia 9 NG/mL 30-100 low Vitam in D Statu s 25-OH Vitam in D: Defic iency : <20 ng/mL Insuf ficie ncy: 20 - 29 ng/mL Optim al: > or = 30 ng/mL For 25-OH Vitam in D testi ng on patie nts on D2-ma pplem entat ion and patie nts for whom quant itati on of D2 and D3 fract ions is requi red, the [facility] Assur eD(TM ) 25-OH VIT D, (D2,D 3), LC/MS /MS is recom josh d: order code [id number] (ria ents >2yrs ). See Note 1 Note 1 For addit ional infor melinda lindsey refer to http: //[facility] shalom Gibson stDia gnost ics.c om/fa q/FAQ 199 (This link is being provi ded for infor adalid talavera/ educlucia sal purpo ses only. ) Not Available [facility] [place] [facility] [address] [facility], [place], [address], 09/25/2023 10:37:25 10/13/1910/14/2024 TSH+F REE T4 TSH 2.670 uIU/m L 0.450- 4.500 normal Not Available [facility] ([facility]) [address] [place], [address], 10/14/2024 08:11:41 10/13/1910/14/2024 TSH+F REE T4 T4,free(dire ct) 1.39 NG/dL 0.82-1 .77 normal Not Available [facility] ([facility]) [address] [place], [address], 10/14/2024 08:11:41 10/13/1910/14/2024 CBC WITH DIFFE RENTI AL/PL ATELE T WBC 8.6 x10e3 /uL 3.4-10 .8 normal Not Available [facility] ([facility]) [address] [place], [address], 10/14/2024 08:11:41 10/13/1910/14/2024 CBC WITH DIFFE RENTI AL/PL ATELE T RBC 5.37 x10e6 /uL 3.77-5 .28 above high normal Not Available [facility] ([facility]) [address] [place], [address], 10/14/2024 08:11:41 10/13/19 25 10/14/2024 CBC WITH DIFFE RENTI AL/PL ATELE T hemoglobin 14.1 g/dL 11.1-1 5.9 normal Not Available [facility] ([facility]) [address] [facility], [place], [address], 10/14/2024 08:11:41 10/13/19 25 10/14/2024 CBC WITH DIFFE RENTI AL/PL ATELE T hematocrit 43.6 % 34.0-4 6.6 normal Not Available [facility] ([facility]) [address] [facility], [place], [address], 10/14/2024 08:11:41 10/13/19 25 10/14/2024 CBC WITH DIFFE RENTI AL/PL ATELE T MCV 81 fL 79-97 normal Not Available [facility] ([facility]) [address] [place], [address], 10/14/2024 08:11:41 10/13/19 25 10/14/2024 CBC WITH DIFFE RENTI AL/PL ATELE T MCH 26.3 pg 26.6-3 3.0 below low normal Not Available [facility] ([facility]) [address] [place], [address], 10/14/2024 08:11:41 10/13/19 25 10/14/2024 CBC WITH DIFFE RENTI AL/PL ATELE T MCHC 32.3 g/dL 31.5-3 5.7 normal Not Available [facility] ([facility]) [address] [place], [address], 10/14/2024 08:11:41 10/13/1910/14/2024 CBC WITH DIFFE RENTI AL/PL ATELE T RDW 12.9 % 11.7-1 5.4 Not Available [facility] ([facility]) [address] [place], [address], 10/14/2024 08:11:41 10/13/19 25 10/14/2024 CBC WITH DIFFE RENTI AL/PL ATELE T platelets 221 x10e3 /uL 150-45 0 normal Not Available [facility] ([facility]) [address] [facility], [place], [address], 10/14/2024 08:11:41 10/13/19 25 10/14/2024 CBC WITH DIFFE RENTI AL/PL ATELE T neutrophils 59 % not estab. normal Not Available [facility] ([facility]) [address] [facility], [place], [address], 10/14/2024 08:11:41 10/13/19 25 10/14/2024 CBC WITH DIFFE RENTI AL/PL ATELE T lymphs 33 % not estab. normal Not Available [facility] ([facility]) [address] [facility], [place], [address], 10/14/2024 08:11:41 10/13/19 25 10/14/2024 CBC WITH DIFFE RENTI AL/PL ATELE T monocytes 6 % not estab. normal Not Available [facility] ([facility]) [address] [facility], [place], [address], 10/14/2024 08:11:41 10/13/19 25 10/14/2024 CBC WITH DIFFE RENTI AL/PL ATELE T eos 1 % not estab. normal Not Available [facility] ([facility]) [address] [facility], [place], [address], 10/14/2024 08:11:41 10/13/19 25 10/14/2024 CBC WITH DIFFE RENTI AL/PL ATELE T basos 1 % not estab. normal Not Available [facility] ([facility]) [address] [facility], [place], [address], 10/14/2024 08:11:41 10/13/19 25 10/14/2024 CBC WITH DIFFE RENTI AL/PL ATELE T immature cells ACTIVITY THERAPY TEACHER Not Available [facility] ([facility]) [address] [place], [address], 10/14/2024 08:11:41 10/13/19 25 10/14/2024 CBC WITH DIFFE RENTI AL/PL ATELE T neutrophils (absolute) 5.0 x10e3 /uL 1.4-7. 0 normal Not Available [facility] ([facility]) [address] [place], [address], 10/14/2024 08:11:41 10/13/19 25 10/14/2024 CBC WITH DIFFE RENTI AL/PL ATELE T lymphs (absolute) 2.9 x10e3 /uL 0.7-3. 1 normal Not Available [facility] ([facility]) [address] [place], [address], 10/14/2024 08:11:41 10/13/19 25 10/14/2024 CBC WITH DIFFE RENTI AL/PL ATELE T monocytes(ab solute) 0.5 x10e3 /uL 0.1-0. 9 normal Not Available [facility] ([facility]) [address] [place], [address], 10/14/2024 08:11:41 10/13/19 25 10/14/2024 CBC WITH DIFFE RENTI AL/PL ATELE T eos (absolute) 0.1 x10e3 /uL 0.0-0. 4 normal Not Available [facility] ([facility]) [address] [place], [address], 10/14/2024 08:11:41 10/13/19 25 10/14/2024 CBC WITH DIFFE RENTI AL/PL ATELE T baso (absolute) 0.0 x10e3 /uL 0.0-0. 2 normal Not Available [facility] ([facility]) [address] [place], [address], 10/14/2024 08:11:41 10/13/19 25 10/14/2024 CBC WITH DIFFE RENTI AL/PL ATELE T immature granulocytes 0 % not estab. Not Available [facility] ([facility]) [address] [facility], [place], [address], 10/14/2024 08:11:41 10/13/19 25 10/14/2024 CBC WITH DIFFE RENTI AL/PL ATELE T immature grans (abs) 0.0 x10e3 /uL 0.0-0. 1 Not Available [facility] ([facility]) [address] [facility], [place], [address], 10/14/2024 08:11:41 10/13/19 25 10/14/2024 CBC WITH DIFFE RENTI AL/PL ATELE T NRBC ACTIVITY THERAPY TEACHER Not Available [facility] ([facility]) [address] [facility], [place], [address], 10/14/2024 08:11:41 10/13/19 25 10/14/2024 CBC WITH DIFFE RENTI AL/PL ATELE T hematology comments: ACTIVITY THERAPY TEACHER Not Available [facility] ([facility]) [address] [facility], [place], [address], 10/14/2024 08:11:41 10/13/19 25 10/14/2024 COMP. METAB OLIC PANEL (14) glucose 174 mg/dL 70-99 above high normal Not Available [facility] ([facility]) [address] [facility], [place], [address], 10/14/2024 08:11:42 10/13/19 25 10/14/2024 COMP. METAB OLIC PANEL (14) BUN 8 mg/dL 6-20 normal Not Available [facility] ([facility]) [address] [facility], [place], [address], 10/14/2024 08:11:42 10/13/19 25 10/14/2024 COMP. METAB OLIC PANEL (14) creatinine 0.66 mg/dL 0.57-1 .00 normal Not Available [facility] ([facility]) [address] [place], [address], 10/14/2024 08:11:42 10/13/19 25 10/14/2024 COMP. METAB OLIC PANEL (14) eGFR 126 mL/mi n/1.7 3 >59 normal Not Available [facility] ([facility]) [address] [place], [address], 10/14/2024 08:11:42 10/13/19 25 10/14/2024 COMP. METAB OLIC PANEL (14) BUN/creatini ne ratio 12 9-23 normal Not Available [facility] ([facility]) [address] [place], [address], 10/14/2024 08:11:42 10/13/19 25 10/14/2024 COMP. METAB OLIC PANEL (14) sodium 139 mmol/ L 134-14 4 normal Not Available [facility] ([facility]) [address] [place], [address], 10/14/2024 08:11:42 10/13/19 25 10/14/2024 COMP. METAB OLIC PANEL (14) potassium 4.0 mmol/ L 3.5-5. 2 normal Not Available [facility] ([facility]) [address] [facility] [place], [address], 10/14/2024 08:11:42 10/13/19 25 10/14/2024 COMP. METAB OLIC PANEL (14) chloride 102 mmol/ L 96-106 normal Not Available [facility] ([facility]) [address] [facility] [place], [address], 10/14/2024 08:11:42 10/13/19 25 10/14/2024 COMP. METAB OLIC PANEL (14) carbon dioxide, total 22 mmol/ L 20-29 normal Not Available [facility] ([facility]) [address] [facility], [place], [address], 10/14/2024 08:11:42 10/13/19 25 10/14/2024 COMP. METAB OLIC PANEL (14) calcium 9.7 mg/dL 8.7-10 .2 normal Not Available [facility] ([facility]) [address] [place], [address], 10/14/2024 08:11:42 10/13/19 25 10/14/2024 COMP. METAB OLIC PANEL (14) protein, total 7.6 g/dL 6.0-8. 5 normal Not Available [facility] ([facility] [facility]) [address] [place], [address], 10/14/2024 08:11:42 10/13/19 25 10/14/2024 COMP. METAB OLIC PANEL (14) albumin 4.4 g/dL 4.0-5. 0 normal Not Available [facility] ([facility]) [address] [place], [address], 10/14/2024 08:11:42 10/13/19 25 10/14/2024 COMP. METAB OLIC PANEL (14) globulin, total 3.2 g/dL 1.5-4. 5 Not Available [facility] ([facility]) [address] [place], [address], 10/14/2024 08:11:42 10/13/19 25 10/14/2024 COMP. METAB OLIC PANEL (14) bilirubin, total 0.3 mg/dL 0.0-1. 2 normal Not Available [facility] ([facility]) [address] [place], [address], 10/14/2024 08:11:42 10/13/19 25 10/14/2024 COMP. METAB OLIC PANEL (14) alkaline phosphatase 152 IU/L 44-121 above high normal Not Available [facility] ([facility]) [address] [place], [address], 10/14/2024 08:11:42 10/13/19 25 10/14/2024 COMP. METAB OLIC PANEL (14) AST (SGOT) 16 IU/L 0-40 normal Not Available [facility] ([facility]) [address] [place], [address], 10/14/2024 08:11:42 10/13/19 25 10/14/2024 COMP. METAB OLIC PANEL (14) ALT (SGPT) 16 IU/L 0-32 normal Not Available [facility] ([facility]) [address] [place], [address], 10/14/2024 08:11:42 10/13/19 25 10/14/2024 LIPID PANEL cholesterol, total 167 mg/dL 100-19 9 normal Not Available [facility] ([facility]) [address] [place], [address], 10/14/2024 08:11:43 10/13/19 25 10/14/2024 LIPID PANEL triglyceride s 116 mg/dL 0-149 normal Not Available [facility] ([facility]) [address] [place], [address], 10/14/2024 08:11:43 10/13/19 25 10/14/2024 LIPID PANEL HDL cholesterol 47 mg/dL >39 normal Not Available [facility] ([facility]) [address] [place], [address], 10/14/2024 08:11:43 10/13/19 25 10/14/2024 LIPID PANEL VLDL cholesterol olivia 21 mg/dL 5-40 Not Available [facility] ([facility]) [address] [place], [address], 10/14/2024 08:11:43 10/13/19 25 10/14/2024 LIPID PANEL LDL chol calc ([facility]) 99 mg/dL 0-99 Not Available [facility] ([facility]) [address] [facility], [place], [address], 10/14/2024 08:11:43 10/13/19 25 10/14/2024 LIPID PANEL LDL calc comment: 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 6 above high normal Predi abete s: 5.7 - 6.4 Diabe logan: >6.4 Glyce angi contr ol for adult s with diabe logan: <7.0 Not Available [facility] ([facility]) [address] [facility], [place], [address], 10/14/2024 08:11:43 10/13/19 25 10/14/2024 VITAM IN D, 25-HY DROXY vitamin D, 25-hydroxy 13.0 NG/mL 30.0-1 00.0 below low normal Vitam in D defic iency has been defin ed by the Insti tute of Medic ine and an Endoc rine Socie ty pract ice guide line as a level of serum 25-OH vitam in D less than 20 ng/mL (1,2) . The Endoc rine Socie ty went on to furth er defin e vitam in D insuf ficie ncy as a level betwe en 21 and 29 ng/mL (2). 1. IOM (Inst itute of Medic ine). 2009. Dieta ry refer ence intak es for calci um and D. Nithin moore [place]: The Natio nal [facility] Press . 2. Stewart payan MF, Joo rahman [place], Karly off-F vitor i HOWE, et al. Evalu ation , treat ment, and preve ntion of vitam in D defic iency : an Endoc rine Socie ty clini olivia pract ice guide line. JCEM. 2010; 96(7) :1911 -30. Not Available [facility] ([facility]) [address] [facility], [place], [address], 10/14/2024 08:11:44 05/05/20 24 05/05/2024 DEXA No observ ation record ed. [facility] [address], [place], [address], 05/06/2024 12:29:56 Result Notes None recorded. Problems Name Problem SNOMED Code Status Onset Date Resolution Date Notes Provider Name and Address Organization Details Recorded Time Enterobi asis 611774123 Active 2022 JOHNATHAN JARQUIN, [facility], [address] , [employer]. 15:22:13 Onychomy cosis 178167483 Completed 202104/20/2022 Problem Code: B35.1; Problem Code Type: ICD-10; Not Available [facility] 22:21:16 Disorder of upper respirat ory system 247638396 Completed 202107/10/2022 Problem Code: J06.9; Problem Code Type: ICD-10; BLAYNE oreilly, [employer]. 10:17:15 Constipa tion 71380946 Active 2021 Not Available [facility] 22:21:17 Generali zed abdomina l pain 134922200 Completed 202107/10/2022 Problem Code: R10.84; Problem Code Type: ICD-10; BLAYNE oreilly, [employer] 10:17:15 Body mass index 30+ - obesity 320560310 Active 2021 Problem Code: Z68.34; Problem Code Type: ICD-10; Not Available [facility] 22:21:17 Acute gastriti s 28232452 Completed 202107/10/2022 Problem Code: K29.00; Problem Code Type: ICD-10; BLAYNE oreilly [employer]. 10:17:15 Problem Notes None recorded. Medical Equipment [...] height Body mass index (BMI) Body weight Heart rate Oxygen saturation Oxygen saturation in Arterial blood by Pulse oximetry Systolic blood pressure Diastolic blood pressure Provider Name and Address Organization Details Last Updated DateTime 4 160.02 cm 41.8 kg/m2 019411. 8 g 107 /min 98 % 98 % 111 mm[Hg] 72 mm[Hg] [employer] 4 16:34:31 Date Recorded Body height Body mass index (BMI) Body weight Heart rate Oxygen saturation Oxygen saturation in Arterial blood by Pulse oximetry Systolic blood pressure Diastolic blood pressure Provider Name and Address Organization Details Last Updated DateTime 5 160.02 cm 42.8 kg/m2 657520. 86 g 102 /min 98 % 98 % 111 mm[Hg] 79 mm[Hg] [employer] 5 09:01:36 Date Recorded Body height Body mass index (BMI) Body weight Heart rate Oxygen saturation Oxygen saturation in Arterial blood by Pulse oximetry Systolic blood pressure Diastolic blood pressure Provider Name and Address Organization Details Last Updated DateTime 5 160.02 cm 42.5 kg/m2 678627. 17 g 112 /min 97 % 97 % 134 mm[Hg] 82 mm[Hg] [employer] 5 09:00:40 Date Recorded Body height Body mass index (BMI) Body weight Heart rate Oxygen saturation Oxygen saturation in Arterial blood by Pulse oximetry Systolic blood pressure Diastolic blood pressure Provider Name and Address Organization Details Last Updated DateTime 4 160.02 cm 42.3 kg/m2 293517. 58 g 97 /min 98 % 98 % 126 mm[Hg] 83 mm[Hg] Kwasi Macy [employer] 4 16:41:43 Date Recorded Body height Body mass index (BMI) Body weight Body temperature Heart rate Oxygen saturation Oxygen saturation in Arterial blood by Pulse oximetry Systolic blood pressure Diastolic blood pressure Provider Name and Address Organization Details Last Updated DateTime 5 160.02 cm 42.5 kg/m2 188822. 17 g 98.3 [degF] 95 /min 97 % 97 % 124 mm[Hg] 87 mm[Hg] CHIQUITA TIFFANY [employer] 5 10:53:05 Social History Question Answer Notes LastModified by Organizat ion Details LastModified Time Tobacco Smoking Status Never Smoker BLAYNE oreilly, [employer]. 07/10/2022 10:18:36 Do You Have An Advance Directive? No [email or web address] Information n ot available 07/17/2023 Is Your Home Air Conditioned? Yes Information not available 04/05/2023 Are You Blind Or Do You Have Difficulty Seeing? No [email or web address] Information n ot available 07/10/2022 What Is [...] Do You Have Serious Difficulty Hearing? No [email or web address] Information not available 07/10/2022 Have There Been Any Changes To Your Family Or Social Situation? No Information no t available 04/05/2023 Do You Have A Medical Power Of Display Designer? No Information not available 07/17/2023 What Was The Date Of Your Most Recent Tobacco Screening? 02/02/2025 [email or web address] Information not available 02/02/2025 What Is Your Relationship Status? Single [email or web address] Information not available 07/10/2022 Do You Use Your Seat Belt Or Car Seat Routinely? Yes Information not available 04/05/2023 Do You Have Smoke And Carbon Monoxide Detectors In Your Home? Yes Information not available 04/05/2023 Have You Recently Traveled Abroad? No Information not available 04/05/2023 Do You Have Difficulty Walking Or Climbing Stairs? No [email or web address] Information not available 07/10/2022 Sex: Female Functional Status Question Answer Note LastModified by Organizat ion Details LastModified Time Do you use any illicit or recreational drugs? No Information not available 04/05/2023 What is your level of alcohol consumption? None [email or web address] Information not available 07/10/2022 Are you currently employed? No Information not available 04/05/2023 Do you have transportation difficulties? No [email or web address] Information not available 07/10/2022 Are you able to walk? YESWOREST [email or web address] Information not available 07/10/2022 Do you have difficulty doing errands alone? No [email or web address] Information not available 07/10/2022 Are you able to care for yourself? Yes [email or web address] Information not available 07/10/2022 Do you have difficulty dressing or bathing? No [email or web address] Information not available 07/10/2022 Mental Status Question Answer Note LastModified by Organization D etails LastModified Time Do you have difficulty concentrating, remembering or making decisions? No [email or web address] Information no t available 07/10/2022 Family History Relationship Description Onset Age of this Age Resolved Age Notes LastModified by Organization Details LastModified Time Father Family history of diabetes mellitus type 2 [email or web address] Not available 07/10 10:17:49 Medical History Condition Response Hospitalizations N Emergency room visit since last appointm ent. N Gynecological History Statement/Question Response Date of Last Pap Smear Most Recent Mammogram Obstetrics History GPAL:G 0 P 0 0 0 0 Immunizations Vaccine Type Date Status Note Provider Nam e and Address Organization Details Recorded Time Hib-Hep B 1 completed Kassi Bozeman null, [employer] [facility] [email or web address] 07/01/2023 17:06:29 Hib-Hep B 0 completed Kassi Bozeman null, [employer] [facility] [email or web address] 07/01/2023 17:06:29 IPV 1 completed Kassi Bozeman null, [employer] [facility] [email or web address] 07/01/2023 17:06:29 IPV 4 completed Kassi Bozeman null, [employer] 07/01/2023 17:06:29 IPV 0 completed Kassi Bozeman null, [employer] 07/01/2023 17:06:29 IPV 0 completed Kassi Bozeman null, [employer] 07/01/2023 17:06:29 MMR 4 completed Kassi Bozeman null, [employer] 07/01/2023 17:06:29 MMR 1 completed Kassi Bozeman null, [employer] 07/01/2023 17:06:29 pneumococcal conjugate PCV 7 1 completed Kassi Bozeman null, [employer] [facility] [email or web address] 07/01/2023 17:06:29 pneumococcal conjugate PCV 7 1 completed Kassi Bozeman null, [employer] [facility] [email or web address] 07/01/2023 17:06:29 Tdap 2 completed Kassi Bozeman null, [employer] 07/01/2023 17:06:29 varicella 1 completed Kassi Bozeman null, [employer] [facility] [email or web address] 07/01/2023 17:06:29 varicella 2 completed Kassi Bozeman null, [employer] 07/01/2023 17:06:29 HPV, quadrivalent 3 completed Kassi Bozeman null, [employer] 07/01/2023 17:06:29 HPV, quadrivalent 2 completed Kassi Bozeman null, [employer] 07/01/2023 17:06:29 HPV, quadrivalent 2 completed Kassi Jake null, [employer] 07/01/2023 17:06:29 Hep B, adolescent or pediatric 0 completed Kassi Bozeman null, [employer] 07/01/2023 17:06:29 Hep A, ped/adol, 2 dose 8 completed Kassi Bozeman null, [employer] 07/01/2023 17:06:29 Hep A, ped/adol, 2 dose 8 completed Kassi Bozeman null, [employer] 07/01/2023 17:06:29 Hib (PRP-OMP) 0 completed Kassi Bozeman null, [employer] 07/01/2023 17:06:29 meningococcal MCV4P 8 completed Kassi Bozeman null, [employer] 07/01/2023 17:06:29 DTaP, unspecified formulation 1 completed Kassi Bozeman null, [employer] 07/01/2023 17:06:29 DTaP, unspecified formulation 4 completed Kassi Bozeman null, [employer] 07/01/2023 17:06:29 DTaP, unspecified formulation 0 completed Kassi Bozeman null, [employer] 07/01/2023 17:06:29 DTaP, unspecified formulation 1 completed Kassi Bozeman null, [employer] 07/01/2023 17:06:29 DTaP, unspecified formulation 0 completed [facility]i Ajke null, [facility] 07/01/2023 17:06:29 meningococcal MCV4, unspecified formulation 2 completed Kassi Bozeman null, [facility] [employer] 07/01/2023 17:06:29 Influenza, split virus, quadrivalent, PF 6 completed Kassi Bozeman null, [facility] [employer] 07/01/2023 17:06:29 Past Encounters Encounter ID Performer Location Encounter Start Date Encounter Closed Date Diagnosis/Indication Diagnosis SNOMED-CT Code Diagnosis ICD10 Code Diagnosis Note [id number] [place] [address] 07/10/2022 10:09:09 07/10/2022 10:53:08 Epidermoid cyst 570522906 L72.0 Ingrowing toenail 796790 009 L60.0 [id number] Maria Trené Deluna [place] [phone] 04/05/2023 09:39:13 04/05/2023 10:39:12 Ingrowing toenail 938944288 L60.0 Body mass index 40+ - severely obese 644608601 Z68.41 [id number] [place] [id number] 07/01/2023 16:54:31 07/01/2023 17:53:26 Acute pharyngitis 751369754 J02.9 [id number] JOHNATHAN JARQUIN [address] [address] 07/17/2023 14:55:47 07/17/2023 17:00:20 Enterobiasis 738539742 B80 [id number] Maria T Deluna [address] [address] 08/06/2023 08:44:36 08/06/2023 09:01:01 Acute otitis media 2254111 H66.92 Body mass index 40+ - severely obese 139015404 Z68.41 [id number] Maria T Deluna [place] [address] 0 09/24/2023 16:23:46 09/24/2023 16:55:46 Fatigue 24302476 R53.83 Hyperlipidemia 67607548 E78.5 Vitamin D deficiency 347 03333 E55.9 Vitamin B deficiency 479 50033 E53.9 Body mass index 40+ - severely obese 718295420 Z68.41 [id number] Maria T Deluna [place] [address] 0 01/31/2024 16:31:25 01/31/2024 17:07:24 Otitis externa of left ear 8203413833 454234 H60.92 Body mass index 40+ - severely obese 925402140 Z68.41 [id number] Maria T Deluna [place] [address] 0 10/13/2024 08:37:16 10/13/2024 09:14:01 Fatigue 73114615 R53.83 Vitamin D deficiency 347 97325 E55.9 Hyperlipidemia 72100908 E78.5 Hyperglycemia 87358478 R 73.9 Body mass index 40+ - severely obese 862197873 Z68.41 [id number] Maria T Deluna [place] [address] 0 11/06/2024 08:49:07 11/06/2024 09:28:02 Type 2 diabetes mellitus without complication 590048957 E11.9 Hyperlipidemia 87306046 E78.5 Body mass index 40+ - severely obese 933237161 Z68.41 [id number] Maria T Deluna [place] [address] 0 02/02/2025 10:41:25 02/02/2025 11:18:20 Type 2 diabetes mellitus 06346772 E11.9 Z79.4 Mixed hyperlipidemia 267 728641 E78.2 Body mass index 40+ - severely obese 909346224 Z68.41 Health Concerns Section Related Observation LastModified by Organization Detai ls LastModified Time None Recorded Concern Status LastModified by Organization Details LastModified Time None Recorded Advance Directives Directive N: Payers Insurance Date Sequence Insurance Name Policy Number Policy Ramiers Covered Member ID Ramires Member ID Guarantor Name 02/05/2025 1 [facility] (MEDICAID HMO) Eva Garcia [id number] Eva Garcia Notes Date Note Type Note Provider Name and Address Organization Details Recorded Time 09/24/2023 text/html pt here today fo r an ER f/u. pt states she went to ER 09/08 (kwasi calling and getting records now) but states she went for abd pain and diarrhea (that has since gotten better) and was told her TSH was elevated and that she needed to get that checked out. pt denies any thyroid nodules, hx of thyroid issues, trouble swallowing, fatigue, heat/cold intolerance, wt loss/gain, hair loss. i will order labs to recheck. Maria T Deluna APRN [address] [place], [address], [employer]. 09/24/2023 17:13:26 01/31/2024 text/html pt here today with c/o left ear pain that started this am. on exam, left ear red with some white drainage, lungs clear. ordered ear gtts. educated pt on new med. pt voiced understanding. return for worsening symptoms. Maria T Deluna APRN [address] [place], [address], [employer] 01/31/2024 17:00:50 10/13/2024 text/html pt here for an E R f/u from aug. pt states that she went to the ER for severe diarrhea and they couldnt find the reason. states that she was told that her KCL was low and they gave her some KCL and fluids and sent her home. states her diarrhea lasted about 5 days. however she feels much better now. i will order f/u lab work today. Maria T Deluna APRN [address] [place], [address], [place] [employer]. 10/13/2024 10:03:38 11/06/2024 text/html 24 year old female here to review recent lab results. Denies acute concerns.A1C 7.0- Educated patient that with recent a1c she is considered diabetic. States she only drinks water, doesn't eat breakfast or lunch but eats chips/snack cakes/string cheese/fruit throughout the day, then eats a big dinner. educated pt on proper diabetic diet and exercise regimen. With these results, we will plan to start metformin. Educated on proper medication use. Will also prescribe low dose statin to prevent CAD. Patient educated and agrees with plan. She is to f/u in 3 monthsLow Vit D- Vit D level 13. Educated her on ways to natural increase this but will also prescribe weekly vit d. Patient agrees with plan Maria T Deluna APRN [address] [place], [address], [employer], [employer]. 11/06/2024 15:42:41 02/02/2025 text/html pt here today fo r [...] as prescribed. Maria T Deluna APRN [address] [place], [address], [employer]. 02/02/2025 16:59:02 OBGyn Episode No OBEpisode recorded.
[2025-03-01 15:19] VITALS: BP 144/103; PULSE 104; RESP 17; TEMP 36.8; O2SAT 98; BMI 40.7
--- NOTE | 2025-03-01 15:31 | HMH.EDGENADL ---
Discharge Plan Disposition Patient Disposition: Home, Self-Care Prescriptions Prescriptions: New hydrocortisone [Preparation H Hydrocortisone] 1 % cream 1 applic topical BID PRN (Reason: allergic reaction) Qty: 28.35 0RF polyethylene glycol 3350 [Miralax] 17 gram/dose powder 17 g PO DAILY Qty: 238 0RF No Action metformin 500 mg tablet 500 mg PO BID rosuvastatin 20 mg tablet 20 mg PO DAILY Referrals Follow up/Referrals: Maria T Deluna APRN [Primary Care Provider, Medical] - See instructions Activity Restrictions/Add. Instructions Additional Instructions/Restrictions: Internal Hemorrhoid Discharge Discharge Instructions for Internal Hemorrhoids - Dietary and Fluid Recommendations: Advise the patient to increase dietary fiber intake to 20?30 grams per day and consume 6?8 glasses of fluids daily. This reduces constipation and straining, which are ahmadi contributors to hemorrhoidal symptoms. Fiber supplementation has been shown to decrease persistent symptoms and rectal bleeding. - Bowel Habits: Rn Review the patient to avoid straining during defecation and to limit time spent on the toilet. Prolonged sitting, including reading or using a cell phone, should be discouraged as it increases venous pressure and exacerbates symptoms. - Stool Softeners: If adequate fiber intake cannot be achieved through diet alone, consider recommending stool softeners such as polyethylene glycol 3,350 or docusate. - Topical Therapies: [id number] topical agents (e.g., hydrocortisone, phenylephrine, pramoxine, witch andrea) may provide temporary symptomatic relief, but there is limited evidence for their long-term efficacy. Prolonged use of topical steroids should be avoided due to the risk of local adverse effects. - Symptom Monitoring: Instruct the patient to monitor for increased pain, persistent bleeding, or signs of infection (e.g., fever, purulent discharge). Advise prompt follow-up if these occur. - Escalation of Care: If symptoms persist despite conservative management, office-based procedures such as rubber band ligation may be considered. Rubber band ligation is the most effective office-based intervention for grades I?III internal hemorrhoids, but should be used with caution in patients on anticoagulation. - Follow-Up: Schedule follow-up as appropriate to assess symptom resolution and response to therapy. These recommendations are in accordance with the [employer] [place] [employer] and the [place] [employer] clinical guidelines. Clinical Impressions Clinical Impression: BRBPR (bright red blood per rectum), Hemorrhoids, internal Stand Alone Forms Stand Alone Forms: Work/School Release Instructions Patient Instructions: DI for Gastrointestinal Bleeding Print Language Print Language: Thai Discharge ED Provider: Ranjit Santizo General Adult HPI General Chief complaint: GI Bleed Stated complaint: Anal Bleeding Time Seen by Provider: 03/01/25 15:16 Mode of Arrival: Ambulatory Source of Information: Patient Description of Symptoms (Recalled from ER Triage Doc. by RN): Patient states that she has noticed bleeding when she went to the bathroom and had a bowel movement a couple of times today- just started today. States she has a history of IBS, denies any hemorrhoids or trauma. History of Present Illness HPI narrative: This is a 24-year-old female presenting with bright red blood per rectum. States that she noticed bleeding when she went to the bathroom and had a bowel movement few times a day. States that it is clearly from her rectum and not vaginal. States that she has a history of IBS and also has a history of hemorrhoids. Denies any rectal or abdominal pain. Related Data Home Medications ?Medication ?Instructions ?Recorded ?Confirmed metformin 500 mg tablet 500 mg PO BID 03/01/25 03/01/25 rosuvastatin 20 mg tablet 20 mg PO DAILY 03/01/25 03/01/25 Previous Rx's ?Medication ?Instructions ?Recorded hydrocortisone 1 % topical cream 1 applic topical BID PRN allergic 03/01/25 (Preparation H Hydrocortisone) reaction #28.35 grams polyethylene glycol 3350 17 17 g PO DAILY #238 grams 03/01/25 gram/dose oral powder (Miralax) Allergies Allergy/AdvReac Type Severity Reaction Status Date / Time corn AdvReac Unknown Verified 03/01/25 15:25 allergy reaction [facility] Disclaimer: The information contained in this section may have been updated after the patient was seen, as this information can be updated by other users. Medical History IBS (irritable bowel syndrome) Surgical History No significant past surgical history Family History Other Cancer Diabetes Heart attack Hypertension Substance abuse Social History Smoking Status: Never smoker alcohol intake: current alcohol intake frequency: holidays/special occasions only substance use type: denies use current occupational status: student Travel in the last 8 weeks?: None Have you lived/traveled outside US in past 30 days?: No Contact w/someone who lives/traveled outside US past 30 days?: No Exposure to someone with infectious disease in past 14 days?: No Do you have a fever (greater than 100.4 F or 38 C)?: No Have you tested positive for COVID-19?: No Exposed to someone with COVID-19 in past 14 days?: No Do you have a sore throat?: No Do you have a cough?: No Do you have any weakness?: No Do you have any diarrhea?: No Are you experiencing any unusual bleeding?: No Do you have any muscle aches/pain?: No Do you have any abdominal pain?: No Are you experiencing loss of taste or smell?: No Other Medical History Have you received the Flu Vaccine for this season: No Have you received the Pneumonia Vaccine: No ROS Obtained: Yes All systems reviewed & no additional complaints except as documented Physical Exam General General appearance: alert and in no apparent distress Head Head exam: atraumatic Eye Eye exam: Present normal appearance, PERRL and EOMI Neck Neck exam: Present normal inspection and full ROM Chest Chest inspection: Present symmetric chest wall rise Respiratory Respiratory exam: Present normal lung sounds bilaterally; Absent respiratory distress Cardiovascular Cardiovascular exam: Present regular rate and normal rhythm Abdominal Exam Abdominal exam: Present soft; Absent distention Extremities Exam Extremities exam: Present normal inspection Neurological Exam Neurological exam: Present alert and oriented X3 Psychiatric Psychiatric exam: Present normal affect and normal mood Skin Skin exam: Present warm and dry Medical Decision Making Medical Records Medical records reviewed: Yes I reviewed the patient's medical records. Screening: Per USPSTF and CDC recommendations, given the prevalence of disease in our region, it is our hospital?s policy to screen for HIV and viral Hepatitis for all patients aged 18 and over and those with ongoing risk factors. Alek Inquiry Pt receiving controlled substance: No Vital Signs: 03/01/25 15:19 Temperature 98.2 F Temperature Source Oral Pulse Rate [Right Radial] 104 H Respiratory Rate 17 Blood Pressure [Right Arm] 144/103 H Blood Pressure Mean [Right Arm] 116 Blood Pressure Source [Right Arm] Automatic Cuff Blood Pressure Position [Right Arm] Sitting 02 Sat by Pulse Oximetry 98 Oxygen Delivery Method Room Air Medical Decision Narrative: This is a 24-year-old female presenting with bright red blood per rectum that began today. History of hemorrhoids. On arrival, vital stable and in no acute distress. Benign abdominal exam. When asked if it could possibly be vaginal patient denies and states that it is clearly rectal. Differential diagnosis includes but is not limited to diverticulosis, internal/external hemorrhoids, anal fissure. Exam demonstrated previous external hemorrhoids however nontender. Small amount of bleeding on rectal exam. Painless. Did not definitively palpate internal hemorrhoids however this is the most likely diagnosis. Appropriate for discharge with management for internal hemorrhoids and PCP follow-up as dictated below. Critical Care Critical Care Time Critical Care Time: No
[2025-03-01 16:11] VITALS: BP 150/94; PULSE 93; RESP 16; TEMP 36.9; O2SAT 99
== END 2025-03-01 16:12 | disposition home or self-care (01) ==
PROVIDERS: Emergency Provider Student in an Organized Health Care Education/Training Program; PCP Nurse Practitioner
DX: K62.5 Hemorrhage of anus and rectum (principal); K64.8 Other hemorrhoids; Z87.19 Personal history of other diseases of the digestive system
CPT/HCPCS: 99283

== ENCOUNTER 2025-05-13 09:28 | Emergency (ER) | payer MEDICAID, SELFPAY ==
[2025-05-13 09:32] VITALS: BP 129/97; PULSE 100; RESP 17; TEMP 36.8; O2SAT 98; BMI 40.7
--- NOTE | 2025-05-13 10:13 | ED_ITS ---
Discharge Plan Disposition Patient Disposition: Home, Self-Care Prescriptions Prescriptions: New amoxicillin-pot clavulanate 875-125 mg tablet 1 tab PO BID 10 Days Qty: 20 0RF No Action metformin 500 mg tablet 500 mg PO BID rosuvastatin 20 mg tablet 20 mg PO DAILY hydrocortisone [Preparation H Hydrocortisone] 1 % cream 1 applic topical BID PRN (Reason: allergic reaction) Qty: 28.35 0RF polyethylene glycol 3350 [Miralax] 17 gram/dose powder 17 g PO DAILY Qty: 238 0RF Referrals Follow up/Referrals: Maria T Deluna APRN [Primary Care Provider, Medical] - See instructions Activity Restrictions/Add. Instructions Additional Instructions/Restrictions: As discussed there is an early infection associated with a cat bite of your thumb. This could get significantly worse. Please keep this clean with soap an d water apply topical antibiotic ointment mainly triple antibiotic ointment or Neosporin 2 times a day over the next week. This may take 48 to 72 hours in addition to your oral antibiotics to show significant improvement as discussed if you see significant worsening with diffuse swelling high fevers pus coming from the wound etc. please return to the emergency department. Of note we do not have hand surgeons here at [facility] you may choose to go to [facility] where they have hand surgery which would be the next intervention if this worsens. Also as discussed we had shared decision making and you opted ultimately not to proceed with rabies immunoglobulin and vaccination series if you change your mind on this please return to the emergency department. The exposure seems to be extremely low risk but nonzero risk as discussed. Clinical Impressions Clinical Impression: Infected cat bite of thumb Instructions Patient Instructions: Animal Bites Print Language Print Language: Panamanian Discharge ED Provider: Rip Mason General Adult HPI General Chief complaint: Animal Bite Stated complaint: AO-05/12 bit by cat on rt thumb Time Seen by Provider: 05/13/25 09:36 Mode of Arrival: Ambulatory Source of Information: Patient Description of Symptoms (Recalled from ER Triage Doc. by RN): Reports being bit by cat on R thumb @ 2100 last night. No recent fevers, thumb is visibly red and swollen. History of Present Illness HPI narrative: Patient is a 25-year-old female bit in the right thumb by a cat last night around 2100 presents today with some pain redness and swelling on that right thumb. The cat is a cat that she is known for a long time and the cat was stuck and was scared and she tried to help it at which point it bit her in the thumb however afterwards once it was freed was acting normally at his baseline. This is not her cat so she has unknown vaccination status however she states that there was no concern from a behavioral standpoint about how the cat was behaving. No fevers or chills or systemic symptoms at the moment. Related Data Home Medications ?Medication ?Instructions ?Recorded ?Confirmed metformin 500 mg tablet 500 mg PO BID 03/01/2503/01 rosuvastatin 20 mg tablet 20 mg PO DAILY 03/01/2506/17 Previous Rx's ?Medication ?Instructions ?Recorded hydrocortisone 1 % topical cream 1 applic topical BID PRN allergic 03/01/25 (Preparation H Hydrocortisone) reaction #28.35 grams polyethylene glycol 3350 17 17 g PO DAILY #238 grams 0 03/01/25 gram/dose oral powder (Miralax) amoxicillin 875 mg-potassium 1 tab PO BID 10 days #20 tabs 05/13/25 clavulanate 125 mg tablet Allergies Allergy/AdvReac Type Severity Reaction Status Date / Time corn AdvReac Unknown Verified 05/13/25 09:40 allergy reaction [facility] Disclaimer: The information contained in this section may have been updated after the patient was seen, as this information can be updated by other users. Medical History IBS (irritable bowel syndrome) Surgical History No significant past surgical history Family History Other Cancer Diabetes Heart attack Hypertension Substance abuse Social History Smoking Status: Never smoker alcohol intake: current alcohol intake frequency: holidays/special occasions only substance use type: denies use current occupational status: student Travel in the last 8 weeks?: None Have you lived/traveled outside US in past 30 days?: No Contact w/someone who lives/traveled outside US past 30 days?: No Exposure to someone with infectious disease in past 14 days?: No Do you have a fever (greater than 100.4 F or 38 C)?: No Have you tested positive for COVID-19?: No Exposed to someone with COVID-19 in past 14 days?: No Do you have a sore throat?: No Do you have a cough?: No Do you have any weakness?: No Do you have any diarrhea?: No Are you experiencing any unusual bleeding?: No Do you have any muscle aches/pain?: No Do you have any abdominal pain?: No Are you experiencing loss of taste or smell?: No Other Medical History Have you received the Flu Vaccine for this season: No Have you received the Pneumonia Vaccine: No ROS Obtained: Yes All systems reviewed & no additional complaints except as documented Physical Exam General General appearance: alert and in no apparent distress Respiratory Respiratory exam: Present normal lung sounds bilaterally Cardiovascular Cardiovascular exam: Present regular rate Extremities Exam Extremities exam: Present other (Right thumb on the dorsum of the interphalangeal joint there is some swelling and erythema and tenderness no obvious purulent drainage or circumferential or flexor) Neurological Exam Neurological exam: Present alert and oriented X3 Medical Decision Making Medical Records Screening: Per USPSTF and CDC recommendations, given the prevalence of disease in our region, it is our hospital?s policy to screen for HIV and viral Hepatitis for all patients aged 18 and over and those with ongoing risk factors. Alek Inquiry Pt receiving controlled substance: No Vital Signs: 05/13/25 09:32 Temperature 98.2 F Temperature Source Oral Pulse Rate [Left Brachial] 100 H Respiratory Rate 17 Blood Pressure [Left Arm] 129/97 H Blood Pressure Mean [Left Arm] 107 Blood Pressure Source [Left Arm] Automatic Cuff 02 Sat by Pulse Oximetry 98 Oxygen Delivery Method Room Air Orders (Tests/Meds): ED MEDICATIONS Discontinued Medications Generic Name Dose Route Start Last Admin Trade Name Freq PRN Reason Stop Dose Admin Amoxicillin/Clavulanate Potassium 1 each 05/13/25 10:09 05/13/25 10:14 Amoxicillin/Clavulanate Potassium 875/125mg Tablet PO 05/13/25 10:10 1 each ONCE ONE Administration Medical Decision Narrative: 25-year-old with superficially an early infected dorsal aspect of the thumb soft tissue infection from a cat bite. Will cover with Augmentin no obvious need for surgical intervention at the moment but this certainly could get worse and this has been explained to the patient to keep a close eye on this. She will keep it clean with soap and water and topical antibiotic ointment in addition to completing her Augmentin. Patient was updated from a tetanus standpoint. We had an extensive discussion regarding the risk and benefits of rabies immunoglobulin and vaccination. The likelihood that this cat who was in his normal state of behavior and bit her simply out of a fearful moment and was otherwise acting normal has rabies is very low this was explained to her. The risk is not 0 and this was also explained to the patient. I explained to her the need for rabies immunoglobulin and vaccinations if she were to proceed with this and ultimately the patient did not feel strongly about this and with shared decision making we chose not to proceed with this. I have advised her in her discharge instructions that if she changes her mind on this we are willing to proceed with rabies immunoglobulin and vaccination series. Patient was discharged in stable condition. Return precautions emphasized. Critical Care Critical Care Time Critical Care Time: No
[2025-05-13] MEDS: AMOXICILLIN/CLAVULANATE POTASSIUM 875/125MG TABLET 1 EACH PO (10:14)
[2025-05-13] MEDS: TET/DIPHTH/PERT-ADULT 0.5ML SYRINGE 0.5 ML IM (10:22)
[2025-05-13 10:32] VITALS: BP 129/97; PULSE 89; RESP 17; TEMP 37.1; O2SAT 98
--- NOTE | 2025-05-13 10:32 | PC.NURSE ---
TDAP consent complete and placed on chart.
== END 2025-05-13 10:33 | disposition home or self-care (01) ==
PROVIDERS: Emergency Provider Student in an Organized Health Care Education/Training Program; PCP Nurse Practitioner
DX: S61.051A Open bite of right thumb without damage to nail, initial encounter (principal); W55.01XA Bitten by cat, initial encounter
CPT/HCPCS: 90471; 90715; 99283; 99284